=== PATIENT | female | born 1980 | race Caucasian/White ===

== ENCOUNTER 2016-11-28 14:23 | Emergency (ER) | payer SELFPAY ==
[~2016-11-28] VITALS: Ht 157.5 cm; Wt 50.0 kg
[2016-11-28 14:25] VITALS: BP 149/87; PULSE 104; RESP 14; TEMP 98.2; O2SAT 97
== END 2016-11-28 16:59 | disposition left against medical advice (07) ==
LOC: NED 14:23
DX: R68.89 Other general symptoms and signs (principal)
CPT/HCPCS: 99281

== ENCOUNTER 2016-12-11 20:19 | Inpatient (IN) | payer SELFPAY ==
[~2016-12-11] VITALS: Ht 157.5 cm; Wt 57.9 kg
[2016-12-11 20:21] VITALS: BP 130/81; PULSE 97; RESP 18; TEMP 98.1; O2SAT 100
[2016-12-11] MEDS ORDERED: SODIUM CHLORIDE 0.9% FLUSH 5 ML FLUSH IVF PRN (23:30)
[2016-12-11 23:45] LABS: AUTOMATED NEUTROPHIL # 10.7 TH/MM3 (1.8-7.7); BASOPHIL # 0.1 TH/MM3 (0-0.2); BASOPHIL % 0.7 % (0.0-2.0); EOSINOPHIL # 0.1 TH/MM3 (0-0.4); EOSINOPHIL % 0.5 % (0.0-4.0); HEMATOCRIT 34.4 % (35.0-46.0); LYMPH % 13.3 % (9.0-44.0); LYMPHOCYTE # 1.8 TH/MM3 (1.0-4.8); MEAN CELL VOLUME 73.9 FL (80.0-100.0); MEAN CORPUSCULAR HEMOGLOBIN 24.3 PG (27.0-34.0); MEAN CORPUSCULAR HGB CONC 32.9 % (32.0-36.0); NEUT % 77.5 % (16.0-70.0); PLATELET COUNT 296 TH/MM3 (150-450); RED BLOOD COUNT 4.66 MIL/MM3 (4.00-5.30); RED CELL DISTRIBUTION WIDTH 20.2 % (11.6-17.2); WHITE BLOOD COUNT 13.8 TH/MM3 (4.0-11.0)
--- NOTE | 2016-12-11 23:45 | RADRPT ---
EXAM DATE/TIME: 12/11/2016 23:29 [facility] COMPARISON: CHEST SINGLE AP, September 26, 2015, 21:58. INDICATIONS : Chest pain. MEDICAL HISTORY : Chronic obstructive pulmonary disease. Ovarian cancer, Cirrhosis, Asthma SURGICAL HISTORY : None. ENCOUNTER: Initial ACUITY: 2 days PAIN SCORE: 8/10 LOCATION: Bilateral chest FINDINGS: There is an area of increased density in the right upper lobe measuring just under 3 cm in diameter. Further evaluation with chest CT with contrast recommended. Left lung is clear. Heart size normal. No effusion. CONCLUSION: 1. Focal area of consolidation or mass in the right upper lobe. Further evaluation with chest CT desire mmended. Jai Jones MD on December 11, 2016 at 23:42 Board Certified Radiologist. This report was verified electronically.
[2016-12-11 23:49] LABS: HEMO FLAGS AUTO DIFF
[2016-12-11 23:57] LABS: APTT (PATIENT) 29.9 SEC (24.3-30.1); PROTHROMBIN TIME - PATIENT 10.7 SEC (9.8-11.6)
--- NOTE | 2016-12-11 23:58 | PD ---
HPI Chief Complaint: Respiratory Symptoms Time Seen by Provider: 23:13 Travel History International Travel<30 days: No Contact w/Intl Traveler<30days: No Traveled to known affect area: No History of Present Illness HPI The patient is a 36 year old female who presents to the [facility] emergency department with a history of right-sided sharp back pain that she reports began yesterday. She reports the pain is constant and worse with taking a deep breath or exhaling. She reports that it has now also begun to involve her right anterior chest, right neck and her head. The patient reports having nausea but no vomiting. She reports that she's had diarrhea 2-3 times today. She reports that she's had a diminished appetite. She denies ever having a pain similar to this previously. She does have a history of IV drug use of methamphetamine and Dilaudid. She reports that she last used 3 days ago. She denies any prior history of heart infections. She is unsure whether she's had fevers. She reports that she has had chills. She reports that she's had a cough as been nonproductive. The patient reports that the pain in her chest and back makes her feel short of breath. She reports that the only thing that seems to help is lying still and taking shallow breaths. She denies having any lower extremity edema, calf pain, or erythema. The patient denies any abdominal pain, vomiting, urinary symptoms, or neurologic symptoms. LMP: 3 weeks ago [facility] Past Medical History Narrative Medical The patient's past medical history is significant for anxiety, depression, history of an autoimmune disorder, history of cirrhosis, COPD, history of hepatitis C, history of necrotizing fasciitis involving the right flank status post surgery and skin graft placement, history of ovarian cysts, history of polysubstance abuse, history of IV drug use. Asthma: Yes Autoimmune Disease: Yes (rheumatoid arthritis) Anxiety: Yes Depression: Yes Cancer: Yes (HX ovarian) Cardiovascular Problems: No Chemotherapy: Yes Cirrhosis: Yes COPD: Yes Cerebrovascular Accident: No Diabetes: No Diminished Hearing: No Endocrine: No Gastrointestinal Disorders: Yes (pain and diarrhea for two years) Genitourinary: Yes (uti) Headaches: Yes Hepatitis: Yes (HEP C) Immune Disorder: No Musculoskeletal: Yes Neurologic: Yes Psychiatric: Yes Reproductive: No Respiratory: No Immunizations Current: Yes Myocardial Infarction: No Radiation Therapy: No Renal Failure: Yes Seizures: Yes Tetanus Vaccination: < 5 Years Influenza Vaccination: No ?: Not LMP: TUBAL LIGATION : 3 Para: 3 Ovarian Cysts: Yes Tubal Ligation: Yes Past Surgical History Narrative Surgical The patient's past surgical history is significant for expiratory abdominal surgery 3, history of a , history of ovarian surgery, history of skin grafting due to necrotizing fasciitis involving the left side of her posterior thorax. Abdominal Surgery: Yes (exploratory surgery X3) Cardiac Surgery: No Section: Yes (X1) Endocrine Surgery: Yes (adnoids and polyps at age 9) Genitourinary Surgery: No Gynecologic Surgery: Yes (OVARY REMOVAL) Thoracic Surgery: No Other Surgery: Yes Social History Alcohol Use: No Tobacco Use: Yes (10/15-12/15 PPD) Substance Use: Yes (methamphetamine, dilaudid) Allergies-Medications (Allergen,Severity, Reaction): Coded Allergies: Codeine (Verified Allergy, Intermediate, Hives, 12/11/16) Reported Meds & Prescriptions Reported Meds & Active Scripts Active No Active Prescriptions or Reported Medications Review of Systems Except as stated in HPI: all other systems reviewed are Neg General / Constitutional: Positive: Fever, Chills Eyes: No: Visual changes HENT: No: Headaches Cardiovascular: Positive: Chest Pain or Discomfort, Dyspnea on exertion Respiratory: Positive: Cough, Shortness of Breath Gastrointestinal: Positive: Nausea, Diarrhea, Changes in Bowel Habits, Loss of Appetite, No: Vomiting, Abdominal Pain, Indigestion Genitourinary: No: Urgency, Frequency, Dysuria, Flank Pain Musculoskeletal: No: Pain Skin: No Rash Neurologic: No: Weakness, Focal Abnormalities, Change in Mentation, Slurred Speech, Sensory Disturbance Psychiatric: No: Depression Endocrine: No: Polydipsia Hematologic/Lymphatic: No: Easy Bruising Physical Exam Narrative General: The patient is a well-developed well-nourished female who is uncomfortable appearing on my arrival to the room, splinting her breathing. Head and Neck exam: Head is normocephalic atraumatic. Eyes: EOMI, pupils are equal round and reactive to light. Nose: Midline septum with pink mucous membranes Mouth: Dentition unremarkable. Moist mucus membranes. Posterior oropharynx is not erythematous. No tonsillar hypertrophy. Uvula midline. Airway patent. Neck: No palpable lymphadenopathy. No nuchal rigidity. No thyromegaly. Cardiovascular: Sinus tachycardia in the low 100s without murmurs, gallops, or rubs. No pulse deficit to the extremities and simultaneous auscultation and palpation of the radial artery. Lungs: Clear to auscultation bilaterally. No wheezes, rhonchi, or rales. Abdomen: Soft, without tenderness to palpation in all 4 quadrants of the abdomen. No guarding, rebound, or rigidity. Normal bowel sounds are audible. Extremities: No clubbing, cyanosis, or edema. 2+ pulses in all 4 extremities. No calf tenderness on palpation. Negative Homans sign. No palpable cords. Back: No spinous process tenderness to palpation. No costovertebral angle tenderness to palpation. Neurologic Exam: Grossly nonfocal. Skin Exam: Intact skin that is warm and dry. On examination of her skin she has spider angioma on a consistent with her history of cirrhosis. Data Data Last Documented VS Vital Signs Date Time Temp Pulse Resp B/P Pulse Ox O2 Delivery O2 Flow Rate FiO2 12/11/16 20:49 16 Room Air 12/11/16 20:21 98.1 97 130/81 100 Orders Electrocardiogram (12/11/16 23:18) B-Type Natriuretic Peptide (12/11/16 23:18) Ckmb (Isoenzyme) Profile (12/11/16 23:18) Complete Blood Count With Diff (12/11/16 23:18) Comprehensive Metabolic Panel (12/11/16 23:18) Magnesium (Mg) (12/11/16 23:18) Troponin I (12/11/16 23:18) Lipase (12/11/16 23:18) Chest, Single Ap (12/11/16 23:18) Ecg Monitoring (12/11/16 23:18) Iv Access Insert/Monitor (12/11/16 23:18) Oximetry (12/11/16 23:18) Oxygen Administration (12/11/16 23:18) Sodium Chloride 0.9% Flush (Ns Flush) (12/11/16 23:30) Prothrombin Time / Inr (Pt) (12/11/16 23:18) Act Partial Throm Time (Ptt) (12/11/16 23:18) Westergren Sedimentation Rate (12/11/16 23:18) D-Dimer (12/11/16 23:18) Urinalysis - C+S If Indicated (12/11/16 23:18) Drug Screen, Random Urine (12/11/16 23:18) Alcohol (Ethanol) (12/11/16 23:18) Ed Urine Pregnancytest Poc (12/11/16 23:22) Lactic Acid Sepsis Protocol (12/11/16 23:38) Blood Culture (12/11/16 23:38) Sodium Chlor 0.9% 1000 Ml Inj (Ns 1000 M (12/12/16 00:00) Ondansetron Inj (Zofran Inj) (12/12/16 00:00) Ketorolac Inj (Toradol Inj) (12/12/16 00:00) Ct Pulmonary Angiogram (12/12/16 03:35) Vancomycin Inj (Vancomycin Inj) (12/12/16 03:45) Piperacil-Tazo 3.375 Gm Premix (Zosyn 3. (12/12/16 03:45) Admit Order (Ed Use Only) (12/12/16 03:36) Labs Laboratory Tests Test 12/11/16 12/12/16 12/12/16 23:33 00:05 01:40 Prothrombin Time 10.7 SEC Prothromb Time International 1.0 RATIO Ratio Activated Partial 29.9 SEC Thromboplast Time D-Dimer Quantitative (PE/DVT) 0.65 MG/L FEU White Blood Count 13.8 TH/MM3 Red Blood Count 4.66 MIL/MM3 Hemoglobin 11.3 GM/DL Hematocrit 34.4 % Mean Corpuscular Volume 73.9 FL Mean Corpuscular Hemoglobin 24.3 PG Mean Corpuscular Hemoglobin 32.9 % Concent Red Cell Distribution Width 20.2 % Platelet Count 296 TH/MM3 Mean Platelet Volume 7.9 FL Neutrophils (%) (Auto) 77.5 % Lymphocytes (%) (Auto) 13.3 % Monocytes (%) (Auto) 8.0 % Eosinophils (%) (Auto) 0.5 % Basophils (%) (Auto) 0.7 % Neutrophils # (Auto) 10.7 TH/MM3 Lymphocytes # (Auto) 1.8 TH/MM3 Monocytes # (Auto) 1.1 TH/MM3 Eosinophils # (Auto) 0.1 TH/MM3 Basophils # (Auto) 0.1 TH/MM3 CBC Comment AUTO DIFF Differential Comment AUTO DIFF CONFIRMED Erythrocyte Sedimentation Rate 29 mm/hr Sodium Level 134 MEQ/L Potassium Level 3.4 MEQ/L Chloride Level 100 MEQ/L Carbon Dioxide Level 24.8 MEQ/L Anion Gap 9 MEQ/L Blood Urea Nitrogen 4 MG/DL Creatinine 0.56 MG/DL Estimat Glomerular Filtration 122 ML/MIN Rate Random Glucose 87 MG/DL Calcium Level 8.9 MG/DL Magnesium Level 1.9 MG/DL Total Bilirubin 0.4 MG/DL Aspartate Amino Transf 19 U/L (AST/SGOT) Alanine Aminotransferase 12 U/L (ALT/SGPT) Alkaline Phosphatase 75 U/L Total Creatine Kinase 44 U/L Troponin I LESS THAN 0.02 NG/ML B-Type Natriuretic Peptide 61 PG/ML Total Protein 7.3 GM/DL Albumin 2.9 GM/DL Lipase 68 U/L Ethyl Alcohol Level LESS THAN 3 MG/DL Lactic Acid Level 0.9 mmol/L Urine Color LIGHT-YELLOW Urine Turbidity HAZY Urine pH 7.0 Urine Specific [place] 1.005 Urine Protein NEG mg/dL Urine Glucose (UA) NEG mg/dL Urine Ketones 10 mg/dL Urine Occult Blood NEG Urine Nitrite NEG Urine Bilirubin NEG Urine Urobilinogen LESS THAN 2.0 MG/DL Urine Leukocyte Esterase SMALL Urine RBC 1 /hpf Urine WBC 2 /hpf Urine Squamous Epithelial 6 /hpf Cells Urine Renal Epithelial Cells <1 /hpf Urine Bacteria RARE /hpf Microscopic Urinalysis Comment CULT NOT INDICATED Urine Opiates Screen NEG Urine Barbiturates Screen NEG Urine Amphetamines Screen POS Urine Benzodiazepines Screen NEG Urine Cocaine Screen POS Urine Cannabinoids Screen NEG MDM Medical Decision Making Medical Screen Exam Complete: Yes Emergency Medical Condition: Yes Medical Record Reviewed: Yes Interpretation(s) Laboratory Tests Test 12/11/16 12/12/16 12/12/16 23:33 00:05 01:40 Prothrombin Time 10.7 SEC Prothromb Time International 1.0 RATIO Ratio Activated Partial 29.9 SEC Thromboplast Time D-Dimer Quantitative (PE/DVT) 0.65 MG/L FEU White Blood Count 13.8 TH/MM3 Red Blood Count 4.66 MIL/MM3 Hemoglobin 11.3 GM/DL Hematocrit 34.4 % Mean Corpuscular Volume 73.9 FL Mean Corpuscular Hemoglobin 24.3 PG Mean Corpuscular Hemoglobin 32.9 % Concent Red Cell Distribution Width 20.2 % Platelet Count 296 TH/MM3 Mean Platelet Volume 7.9 FL Neutrophils (%) (Auto) 77.5 % Lymphocytes (%) (Auto) 13.3 % Monocytes (%) (Auto) 8.0 % Eosinophils (%) (Auto) 0.5 % Basophils (%) (Auto) 0.7 % Neutrophils # (Auto) 10.7 TH/MM3 Lymphocytes # (Auto) 1.8 TH/MM3 Monocytes # (Auto) 1.1 TH/MM3 Eosinophils # (Auto) 0.1 TH/MM3 Basophils # (Auto) 0.1 TH/MM3 CBC Comment AUTO DIFF Differential Comment AUTO DIFF CONFIRMED Erythrocyte Sedimentation Rate 29 mm/hr Sodium Level 134 MEQ/L Potassium Level 3.4 MEQ/L Chloride Level 100 MEQ/L Carbon Dioxide Level 24.8 MEQ/L Anion Gap 9 MEQ/L Blood Urea Nitrogen 4 MG/DL Creatinine 0.56 MG/DL Estimat Glomerular Filtration 122 ML/MIN Rate Random Glucose 87 MG/DL Calcium Level 8.9 MG/DL Magnesium Level 1.9 MG/DL Total Bilirubin 0.4 MG/DL Aspartate Amino Transf 19 U/L (AST/SGOT) Alanine Aminotransferase 12 U/L (ALT/SGPT) Alkaline Phosphatase 75 U/L Total Creatine Kinase 44 U/L Troponin I LESS THAN 0.02 NG/ML B-Type Natriuretic Peptide 61 PG/ML Total Protein 7.3 GM/DL Albumin 2.9 GM/DL Lipase 68 U/L Ethyl Alcohol Level LESS THAN 3 MG/DL Lactic Acid Level 0.9 mmol/L Urine Color LIGHT-YELLOW Urine Turbidity HAZY Urine pH 7.0 Urine Specific [place] 1.005 Urine Protein NEG mg/dL Urine Glucose (UA) NEG mg/dL Urine Ketones 10 mg/dL Urine Occult Blood NEG Urine Nitrite NEG Urine Bilirubin NEG Urine Urobilinogen LESS THAN 2.0 MG/DL Urine Leukocyte Esterase SMALL Urine RBC 1 /hpf Urine WBC 2 /hpf Urine Squamous Epithelial 6 /hpf Cells Urine Renal Epithelial Cells <1 /hpf Urine Bacteria RARE /hpf Microscopic Urinalysis Comment CULT NOT INDICATED Urine Opiates Screen NEG Urine Barbiturates Screen NEG Urine Amphetamines Screen POS Urine Benzodiazepines Screen NEG Urine Cocaine Screen POS Urine Cannabinoids Screen NEG Last Impressions CT Angiography 12/12/16 [id number] Signed Impressions: Service Date/Time: Monday, December 12, 2016 04:18 - CONCLUSION: 1. Negative for pulmonary embolus. 2. 4 cm dense consolidation posterior segment right upper lobe most characteristic of pneumonia with small parapneumonic right pleural effusion. Jai Jones MD Chest X-Ray 12/11/16 [id number] Signed Impressions: Service Date/Time: Sunday, December 11, 2016 23:29 - CONCLUSION: 1. Focal area of consolidation or mass in the right upper lobe. Further evaluation with chest CT recommended. Jai Jones MD Differential Diagnosis Pleurisy, versus pulmonary embolism, versus pneumothorax, versus endocarditis, versus pulmonary infarct, versus septic pulmonary emboli, versus pneumonia Narrative Course During the course of the patients emergency department visit, the patients history, examination, and differential diagnosis were reviewed with the patient. The patient had IV access obtained and blood work sent for analysis. The patient was placed on a classroom monitor with oximetry and blood pressure monitoring. The patient had an EKG done on arrival. The patient's EKG shows a sinus rhythm heart rate of 91, no acute ST segment elevation, T waves are inverted in V1. The patient was provided Toradol for pain, normal saline IV fluids 1 L IV fluid bolus, Zosyn 3.37 g IV, vancomycin 1 g IV. The patients laboratory studies were reviewed and remarkable for a white count of 13.8, hemoglobin 11.3, platelets 296, neutrophil 77.5, sed rate 29, PT PTT within normal limits. D-dimer 0.65, urinalysis shows 10 ketones, small leukocyte esterase Radiology studies were reviewed and remarkable for a chest x-ray that shows a focal area of consolidation or mass in the right upper lobe. CTA to rule out PE was ordered. CTA to rule out PE shows no evidence of PE, 4 cm dense consolidation posterior segment right upper lobe most characteristic pneumonia with small parapneumonic right pleural effusion. The patients results were discussed with the patient, including the plan of care. I explained that further testing and/ or monitoring is indicated based on the patients history, examination, and/ or laboratory findings. Therefore, I recommended admission for additional evaluation. The patient expressed understanding and was agreeable with this plan. The patient was admitted to the hospital in stable condition and [facility] Sepsis Criteria SIRS Criteria (2 or more): Heart rate over 90, WBC > 08014, < 4000 or > 10% bands Sepsis Criteria (SIRS+source): Infect source susp/known Criteria Outcome: Meets SIRS criteria, Meets sepsis criteria Physician Communication Physician Communication The patient's case was discussed with Dr. Vasquez who did agree to admit the patient for further evaluation and treatment at this time. Diagnosis Primary Impression: Pneumonia Qualified Code: J18.1 - Pneumonia of right upper lobe due to infectious organism Additional Impressions: Polysubstance abuse IV drug user Sepsis Qualified Code: A41.9 - Sepsis, due to unspecified organism Admitting Information Admitting Physician Requests: Admit Scripts No Active Prescriptions or Reported Meds Nataly Miller MD Dec 11, 2016 23:58
[2016-12-12] VITALS (8 sets, daily range): BP systolic 111–137; BP diastolic 68–90; PULSE 70–102; RESP 18–20; TEMP 97.4–98.3; O2SAT 99–100
[2016-12-12] MEDS ORDERED: KETOROLAC TROMETHAMINE 30 MG/ML (IVP) VIAL IV PUSH ONE
[2016-12-12] MEDS ORDERED: ONDANSETRON HCL 4 MG/2 ML VIAL IV ONE
[2016-12-12] MEDS ORDERED: SODIUM CHLOR 0.9% 1000 ML INJ 1,000 ML IV ONE
[2016-12-12 00:08] LABS: ALKALINE PHOSPHATASE 75 U/L (45-117); ALT (GPT) 12 U/L (10-53); ANION GAP 9 MEQ/L (5-15); AST (GOT) 19 U/L (15-37); BICARBONATE 24.8 MEQ/L (21.0-32.0); BLOOD UREA NITROGEN 4 MG/DL (7-18); CHLORIDE 100 MEQ/L (98-107); GLOMERULAR FILTRATION RATE 122 ML/MIN (>89); MAGNESIUM 1.9 MG/DL (1.5-2.5); SODIUM (NA) 134 MEQ/L (136-145); TOTAL BILIRUBIN ADULT 0.4 MG/DL (0.2-1.0)
[2016-12-12 00:09] LABS: CREATINE KINASE 44 U/L (26-192); POTASSIUM 3.4 MEQ/L (3.5-5.1)
[2016-12-12 02:05] LABS: SCAN/DIFF AUTO DIFF CONFIRMED
[2016-12-12 02:06] LABS: BACTERIA, URINE RARE /hpf; BLOOD, URINE NEG (NEG); GLUCOSE,URINE NEG (NEG); KETONE, URINE 10 mg/dL (NEG); NITRITE,URINE NEG (NEG); RENAL EPITHELIAL CELLS <1 /hpf; SQUAMOUS EPITHELIAL CELL URINE 6 /hpf (0-5); URINE COLOR LIGHT-YELLOW (YELLW/STRAW)
[2016-12-12 02:07] LABS: COMMENT (UR) CULT NOT INDICATED; CULTURE IF INDICATED CULT NOT INDICATED
[2016-12-12 02:08] LABS: AMPHETAMINE, URINE POS (NEG); BARBITURATES, URINE NEG (NEG); COCAINE, URINE POS (NEG)
[2016-12-12] MEDS ORDERED: PIPERACIL-TAZO 3.375 GM PREMIX 50 ML IV ONE (03:45)
[2016-12-12] MEDS ORDERED: VANCOMYCIN INJ 1,000 MG in SODIUM CHLOR 0.9% 250 ML INJ 250 ML IV ONE (03:45)
[2016-12-12] MEDS ORDERED: SODIUM CHLORIDE 0.9% FLUSH 5 ML FLUSH FLUSH PRN (04:30)
[2016-12-12] MEDS ORDERED: NALOXONE HCL 0.4 MG/ML AMP IV PRN (04:30)
[2016-12-12] MEDS ORDERED: Vancomycin Consult Pharmacy 1 EA OTHER SCH (04:30)
--- NOTE | 2016-12-12 04:54 | RADRPT ---
EXAM DATE/TIME: 12/12/2016 04:18 [facility] COMPARISON: No previous studies available for comparison. INDICATIONS : Right sided chest pain. Elevated D-Dimer. IV CONTRAST: 70 cc Omnipaque 350 (iohexol) IV RADIATION DOSE: 23.38 CTDIvol (mGy) MEDICAL HISTORY : Chronic obstructive pulmonary disease. Hepatitis C. Asthma SURGICAL HISTORY : Tubal ligation. section. ENCOUNTER: Initial ACUITY: 1 day PAIN SCALE: 9/10 LOCATION: Right chest TECHNIQUE: Volumetric scanning of the chest was performed using a pulmonary embolism protocol MIP images were re constructed. Using automated exposure control and adjustment of the mA and/or kV according to patien t size, radiation dose was kept as low as reasonably achievable to obtain optimal diagnostic quality images. FINDINGS: There is a false M. area of consolidation in the posterior segment right upper lobe most characterist ic of a right upper lobe pneumonia. Borderline enlarged right hilar lymph node. Small right-sided ple ural effusion. Left lung is clear except for minimal dependent atelectasis. No filling defects in the pulmonary arteries to suggest pulmonary embolic disease. No acute findings in the upper abdomen. CONCLUSION: 1. Negative for pulmonary embolus. 2. 4 cm dense consolidation posterior segment right upper lobe most characteristic of pneumonia with small parapneumonic right pleural effusion. Jai Jones MD on December 12, 2016 at 4:48 Board Certified Radiologist. This report was verified electronically.
[2016-12-12] MEDS ORDERED: IOHEXOL 350 MG/ML 10 ML VIAL (for RAD DIAG) IV ONE (04:57)
[2016-12-12] MEDS: ENOXAPARIN SODIUM 40 MG/0.4 ML SYRINGE SQ SCH (08:36)
[2016-12-12] MEDS: SODIUM CHLORIDE 0.9% FLUSH 5 ML FLUSH FLUSH SCH ×2 (08:36→20:55)
[2016-12-12] MEDS ORDERED: AMPICILLIN-SULBACTAM INJ 3 GM VIAL IM SCH (09:00)
[2016-12-12] MEDS ORDERED: PIPERACIL-TAZO 4.5 GM PREMIX 100 ML IV SCH (09:00)
[2016-12-12] MEDS ORDERED: AMPICILLIN/SULBAC 3 GM/NS 100 ML IV SCH ×2 (09:00)
--- NOTE | 2016-12-12 09:11 | HHI.HP ---
HPI Service [facility] Primary Care Physician No Primary Care Physician Admission Diagnosis Pneumonia, R/O lung mass, Chest pain Diagnoses: Chief Complaint: Chest pain. Travel History International Travel<30 Days: No Contact w/Intl Traveler <30 Da: No Traveled to Known Affected Are: No Sepsis Criteria SIRS Criteria (2 or more): Heart rate over 90, WBC > 33695, < 4000 or > 10% bands Sepsis Criteria (SIRS+source): Infect source susp/known History of Present Illness Ms. Watson is a 36 year old female with a long history of IVDU, Hep C who presented to the ED on 12/11/2016 due to sharp upper right chest wall pain, right upper back pain that started day prior to this hospitalization. Her pain is worse with a deep breath. She reports radiation of her pain to her right neck and head as well. She had some nausea but no vomiting. Had night sweats but no fever. She uses mainly IV methamphetamine and her last use was 3 days prior to this hospitalization. Denies any cough. No changes in bowel or bladder habits. On Arrival, BP 130/81, P 97, R 18, 98.1, 100% on room air. WBC 13.8, Lactic acid 0.9. UDS positive for cocaine and amphetamines. CXR indicated a right lung mass and CT PE shows 4 cm dense consolidation posterior segment right upper lobe. Review of Systems ROS Limitations: Other (Negative except as noted in the HPI. ) Past Family Social History Past Medical History Hep C Necrotizing Fasciitis. Past Surgical History Necrotizing fasciitis surgery Foot surgery Right ovarian cyst removal, ex lap. Reported Medications No active meds. Allergies: Coded Allergies: Codeine (Verified Allergy, Intermediate, Hives, 12/11/16) Family History Mother - colorectal cancer. Social History < 1ppd smoking. IVDU. Physical Exam Vital Signs Vital Signs Date Time Temp Pulse Resp B/P Pulse Ox O2 Delivery O2 Flow Rate FiO2 12/12/16 08:00 97.6 93 20 136/90 100 12/12/16 06:21 70 12/12/16 05:50 98.2 102 18 118/77 100 12/12/16 04:05 85 18 111/68 99 Room Air 12/11/16 20:49 16 Room Air 12/11/16 20:21 98.1 97 18 130/81 100 Physical Exam GENERAL: This is a well-nourished, well-developed patient, in no apparent distress. SKIN: No rashes, ecchymoses or lesions. Warm and dry. HEAD: Atraumatic. Normocephalic. No temporal or scalp tenderness. EYES: Pupils equal round and reactive. No injection or drainage. ENT: Nose without bleeding, purulent drainage or septal hematoma. Airway patent. NECK: Trachea midline. No lymphadenopathy. Supple, nontender, no meningeal signs. CARDIOVASCULAR: Regular rate and rhythm without murmurs, gallops, or rubs. No JVD. RESPIRATORY: Clear to auscultation. Breath sounds equal bilaterally. No wheezes , rales, or rhonchi. GASTROINTESTINAL: Abdomen soft, non-tender, nondistended. No guarding. MUSCULOSKELETAL: Extremities without clubbing, cyanosis, or edema. NEUROLOGICAL: Awake and alert. Cranial nerves II through XII intact. No focal neurological deficits. Normal speech. Laboratory Laboratory Tests Test 12/11/16 12/12/16 12/12/16 23:33 00:05 01:40 Prothrombin Time 10.7 Prothromb Time International 1.0 Ratio Activated Partial 29.9 Thromboplast Time D-Dimer Quantitative (PE/DVT) 0.65 White Blood Count 13.8 Red Blood Count 4.66 Hemoglobin 11.3 Hematocrit 34.4 Mean Corpuscular Volume 73.9 Mean Corpuscular Hemoglobin 24.3 Mean Corpuscular Hemoglobin 32.9 Concent Red Cell Distribution Width 20.2 Platelet Count 296 Mean Platelet Volume 7.9 Neutrophils (%) (Auto) 77.5 Lymphocytes (%) (Auto) 13.3 Monocytes (%) (Auto) 8.0 Eosinophils (%) (Auto) 0.5 Basophils (%) (Auto) 0.7 Neutrophils # (Auto) 10.7 Lymphocytes # (Auto) 1.8 Monocytes # (Auto) 1.1 Eosinophils # (Auto) 0.1 Basophils # (Auto) 0.1 CBC Comment AUTO DIFF Differential Comment AUTO DIFF CONFIRMED Erythrocyte Sedimentation Rate 29 Sodium Level 134 Potassium Level 3.4 Chloride Level 100 Carbon Dioxide Level 24.8 Anion Gap 9 Blood Urea Nitrogen 4 Creatinine 0.56 Estimat Glomerular Filtration 122 Rate Random Glucose 87 Calcium Level 8.9 Magnesium Level 1.9 Total Bilirubin 0.4 Aspartate Amino Transf 19 (AST/SGOT) Alanine Aminotransferase 12 (ALT/SGPT) Alkaline Phosphatase 75 Total Creatine Kinase 44 Troponin I LESS THAN 0.02 B-Type Natriuretic Peptide 61 Total Protein 7.3 Albumin 2.9 Lipase 68 Ethyl Alcohol Level LESS THAN 3 Lactic Acid Level 0.9 Urine Color LIGHT-YELLOW Urine Turbidity HAZY Urine pH 7.0 Urine Specific [place] 1.005 Urine Protein NEG Urine Glucose (UA) NEG Urine Ketones 10 Urine Occult Blood NEG Urine Nitrite NEG Urine Bilirubin NEG Urine Urobilinogen LESS THAN 2.0 Urine Leukocyte Esterase SMALL Urine RBC 1 Urine WBC 2 Urine Squamous Epithelial 6 Cells Urine Renal Epithelial Cells <1 Urine Bacteria RARE Microscopic Urinalysis Comment CULT NOT INDICATED Urine Opiates Screen NEG Urine Barbiturates Screen NEG Urine Amphetamines Screen POS Urine Benzodiazepines Screen NEG Urine Cocaine Screen POS Urine Cannabinoids Screen NEG Date/Time Procedure Status Source Growth 12/11/16 23:50 Aerobic Blood Culture Received Blood Peripheral Pending 12/11/16 23:50 Anaerobic Blood Culture Received Blood Peripheral Pending Result Diagram: 12/11/16 2333 12/11/16 [address] Angiography 12/12/16 0335 Signed Impressions: Service Date/Time: Monday, December 12, 2016 04:18 - CONCLUSION: 1. Negative for pulmonary embolus. 2. 4 cm dense consolidation posterior segment right upper lobe most characteristic of pneumonia with small parapneumonic right pleural effusion. Jai Jones MD Chest X-Ray 12/11/16 2449 Signed Impressions: Service Date/Time: Sunday, December 11, 2016 23:29 - CONCLUSION: 1. Focal area of consolidation or mass in the right upper lobe. Further evaluation with chest CT recommended. Jai Jones MD Assessment and Plan Problem List: (1) Sepsis ICD Code: A41.9 Status: Resolved (2) Pneumonia ICD Code: J18.9 Status: Acute (3) Pleuritic chest pain ICD Code: R07.81 Status: Acute (4) IVDU (intravenous drug user) ICD Code: F19.90 Status: Chronic Assessment and Plan Ms. Watson is a 36 year old female with a history of Hep C, IVDU who presented to the ED with pleuritic chest pain. CT PE study shows 4 cm dense consolidation. - Sepsis - on admission WBC > 12, Resp rate > 20, Pneumonia - Right sided pneumonia - possibly abscess. - Pleuritic chest pain - On Unasyn and Vancomycin. ID changed Unasyn to Zosyn. - ID consulted for further recommendations. - IV Dilaudid 1mg Q4hrs PRN for one day. Tramadol PO PRN. - Blood cultures pending. - IVDU - Hep C - Counselled patient. - Possible referral to [facility] after discharge Full code. Ladi. Physician Certification 2 Midnight Certification Type: Admission for Inpatient Services Order for Inpatient Services The services are ordered in accordance with Medicare regulations or non- Medicare payer requirements, as applicable. In the case of services not specified as inpatient-only, they are appropriately provided as inpatient services in accordance with the 2-midnight benchmark. Estimated LOS (days): 2 days is the estimated time the patient will need to remain in the hospital, assuming treatment plan goals are met and no additional complications. Post-Hospital Plan: Home Problem Qualifiers (1) Sepsis: Qualified Code: A41.9 - Sepsis, due to unspecified organism (2) Pneumonia: Qualified Code: J18.1 - Pneumonia of right upper lobe due to infectious organism Ernesto Krueger DO Dec 12, 2016 9:11 am
[2016-12-12] MEDS ORDERED: traMADol HCL 50 MG TAB PO PRN (09:15)
[2016-12-12] MEDS ORDERED: ACETAMINOPHEN 500 MG CPLT PO PRN (09:15)
--- NOTE | 2016-12-12 10:09 | EKG ---
Date Performed: 12/11/2016 Time Performed: 23:44:00 PTAGE: 36 years EKG: Sinus rhythm NORMAL ECG PREVIOUS TRACING : 05/06/2016 12.38 DOCTOR: Jaron Mart Interpretating Date/Time 12/12/2016 10:09:39
[2016-12-12] MEDS: HYDROmorphone HCL PF 1 MG/ML VIAL IV PUSH PRN ×4 (10:42→23:13)
--- NOTE | 2016-12-12 11:59 | PD.CONS ---
History of Present Illness Service Infectious disease Consult Requested By Dr Robert Krueger Reason for Consult Evaluate patient with IV drug use, has right lung brown consolidation, possible lung abscess Primary Care Physician No Primary Care Physician Diagnoses: History of Present Illness Patient seen and examined. Records reviewed. Patient is a 36-year-old female presented to the hospital complaining of chest pain and back pain. She initially started experiencing pain in her right upper chest, especially when she takes a deep breath. It progressively worsened and she started having pain in her right upper back as well as pain going up to her right neck. This all started a couple days prior to admission. She denies any congestion or any significant cough, or sore throat. Denies any nausea or vomiting, admits to some diarrhea. She really did not check her temperature but she's had some chills. She has not been around anyone sick. No exposure to any birds. She denies any syncopal episode. She denies any abdominal pain or any urinary complaints. On presentation, her temperature has been normal. Her WBC is normal. Chest x- ray showing an abnormality in the right upper lobe which looks like a mass, and on CAT scan it showed no pulmonary embolism but there is a 2.5 cm consolidation that looks more compatible with a pneumonia. There is also some effusion seen on the right side. Infectious disease consultation is requested to evaluate the patient. Review of Systems Constitutional: COMPLAINS OF: Chills, DENIES: Fatigue, Change in appetite, Night Sweats Eyes: DENIES: Eye pain Ears, nose, mouth, throat: DENIES: Nasal discharge, Oral lesions, Throat pain, Running Nose, Sinus Pain, Toothache Respiratory: COMPLAINS OF: Shortness of breath, DENIES: Cough, Hemoptysis, Sputum production Cardiovascular: COMPLAINS OF: Chest pain, DENIES: Syncope Gastrointestinal: COMPLAINS OF: Diarrhea, DENIES: Abdominal pain, Nausea, Vomiting, Difficulty Swallowing Genitourinary: DENIES: Urgency, Hematuria, Dysuria Musculoskeletal: COMPLAINS OF: Back pain, Neck pain, DENIES: Joint pain, Joint Swelling Integumentary: DENIES: Rash Immunologic/allergic: DENIES: Urticaria Neurologic: DENIES: Headache, Localized weakness Psychiatric: COMPLAINS OF: Anxiety, DENIES: Hallucinations Past Family Social History Allergies: Coded Allergies: Codeine (Verified Allergy, Intermediate, Hives, 12/11/16) Past Medical History Asthma Anxiety Depression Cervical cancer Cirrhosis PTSD Ovarian cyst Previous hepatitis serology, positive for hepatitis B and hepatitis C Patient states HIV testing in the past negative History of necrotizing fasciitis right trunk Past Surgical History section History of necrotizing fasciitis in her right trunk, had undergone multiple debridement and skin grafting Tubal ligation Fracture of the foot, apparently has screws and plates in place Adenoidectomy Active Ordered Medications Tylenol Unasyn Lovenox Dilaudid Ultram Vancomycin Social History Has a roommate Smokes less than 1 pack per day of cigarettes Denies alcohol abuse Has known IV drug use Physical Exam Vital Signs Vital Signs Date Time Temp Pulse Resp B/P Pulse Ox O2 Delivery O2 Flow Rate FiO2 12/12/16 11:36 97.4 93 20 121/74 100 12/12/16 08:00 97.6 93 20 136/90 100 12/12/16 06:21 70 12/12/16 05:50 98.2 102 18 118/77 100 12/12/16 04:05 85 18 111/68 99 Room Air 12/11/16 20:49 16 Room Air 12/11/16 20:21 98.1 97 18 130/81 100 Physical Exam GENERAL: This is a thin, well-developed female, awake and alert, C/O pain on her R chest, not in respiratory distress, does not look toxic appearing. SKIN: Cool and dry. No generalized rash or ecchymosis. Has tattoos. HEAD: Atraumatic. Normocephalic. No temporal or scalp tenderness. EYES: [place] conjunctiva. Pupils equal round and reactive. Extraocular movement full and intact. No scleral icterus. No injection or drainage. ENT: Nose without bleeding, or purulent drainage. Moist oral mucosa. Throat without erythema, or exudate. Uvula midline. Airway patent. NECK: Trachea midline. No JVD or lymphadenopathy. Supple, nontender, no meningeal signs. CARDIOVASCULAR: Regular rate and rhythm without murmurs, gallops, or rubs. RESPIRATORY: Coarse BS bilaterally. Breath sounds equal bilaterally. No wheezes , rales, or rhonchi. There is a large scar on R lateral trunk from previous grafting GASTROINTESTINAL: Abdomen soft, flat, non-tender, nondistended. Bowel sounds present and normoactive. No hepato-splenomegaly, or palpable masses. No guarding. MUSCULOSKELETAL: Extremities without clubbing, cyanosis, or edema. No joint tenderness, effusion, or edema noted. No calf tenderness. Negative Homans sign bilaterally. NEUROLOGICAL: Awake and alert. Cranial nerves II through XII intact. Motor and sensory grossly within normal limits. Normal speech. PSYCH: Appropriate affect, calm and cooperative LINE: PIV with no evidence of infection Laboratory Laboratory Tests Test 12/11/16 12/12/16 12/12/16 23:33 00:05 01:40 Prothrombin Time 10.7 Prothromb Time International 1.0 Ratio Activated Partial 29.9 Thromboplast Time D-Dimer Quantitative (PE/DVT) 0.65 White Blood Count 13.8 Red Blood Count 4.66 Hemoglobin 11.3 Hematocrit 34.4 Mean Corpuscular Volume 73.9 Mean Corpuscular Hemoglobin 24.3 Mean Corpuscular Hemoglobin 32.9 Concent Red Cell Distribution Width 20.2 Platelet Count 296 Mean Platelet Volume 7.9 Neutrophils (%) (Auto) 77.5 Lymphocytes (%) (Auto) 13.3 Monocytes (%) (Auto) 8.0 Eosinophils (%) (Auto) 0.5 Basophils (%) (Auto) 0.7 Neutrophils # (Auto) 10.7 Lymphocytes # (Auto) 1.8 Monocytes # (Auto) 1.1 Eosinophils # (Auto) 0.1 Basophils # (Auto) 0.1 CBC Comment AUTO DIFF Differential Comment AUTO DIFF CONFIRMED Erythrocyte Sedimentation Rate 29 Sodium Level 134 Potassium Level 3.4 Chloride Level 100 Carbon Dioxide Level 24.8 Anion Gap 9 Blood Urea Nitrogen 4 Creatinine 0.56 Estimat Glomerular Filtration 122 Rate Random Glucose 87 Calcium Level 8.9 Magnesium Level 1.9 Total Bilirubin 0.4 Aspartate Amino Transf 19 (AST/SGOT) Alanine Aminotransferase 12 (ALT/SGPT) Alkaline Phosphatase 75 Total Creatine Kinase 44 Troponin I LESS THAN 0.02 B-Type Natriuretic Peptide 61 Total Protein 7.3 Albumin 2.9 Lipase 68 Ethyl Alcohol Level LESS THAN 3 Lactic Acid Level 0.9 Urine Color LIGHT-YELLOW Urine Turbidity HAZY Urine pH 7.0 Urine Specific [place] 1.005 Urine Protein NEG Urine Glucose (UA) NEG Urine Ketones 10 Urine Occult Blood NEG Urine Nitrite NEG Urine Bilirubin NEG Urine Urobilinogen LESS THAN 2.0 Urine Leukocyte Esterase SMALL Urine RBC 1 Urine WBC 2 Urine Squamous Epithelial 6 Cells Urine Renal Epithelial Cells <1 Urine Bacteria RARE Microscopic Urinalysis Comment CULT NOT INDICATED Urine Opiates Screen NEG Urine Barbiturates Screen NEG Urine Amphetamines Screen POS Urine Benzodiazepines Screen NEG Urine Cocaine Screen POS Urine Cannabinoids Screen NEG Date/Time Procedure Status Source Growth 12/11/16 23:50 Aerobic Blood Culture Received Blood Peripheral Pending 12/11/16 23:50 Anaerobic Blood Culture Received Blood Peripheral Pending Result Diagram: 12/11/16 2333 12/11/16 2333 Imaging RADIOLOGY STUDIES/FILMS REVIEWED CT Angiography 12/12/16 0335 Signed Impressions: Service Date/Time: Monday, December 12, 2016 04:18 - CONCLUSION: 1. Negative for pulmonary embolus. 2. 4 cm dense consolidation posterior segment right upper lobe most characteristic of pneumonia with small parapneumonic right pleural effusion. Jai Jones MD Chest X-Ray 12/11/16 5164 Signed Impressions: Service Date/Time: Sunday, December 11, 2016 23:29 - CONCLUSION: 1. Focal area of consolidation or mass in the right upper lobe. Further evaluation with chest CT recommended. Jai Jones MD Assessment and Plan Assessment and Plan IMPRESSION Pneumonia, RUL Known IVDU Hep B and Hep C RECOMMENDATION Continue IV Vanco Change Unasyn to Zosyn Follow C/S Monitor progress Will determine course of Abx once work-up completed I will follow along with you Thank you for this consultation Radha Chen MD Dec 12, 2016 11:59
[2016-12-12] MEDS: PIPERACIL-TAZO 3.375 GM PREMIX 50 ML IV SCH ×2 (14:11→18:53)
[2016-12-12] MEDS: VANCOMYCIN 1,000 MG/NS 250 ML IV SCH ×2 (17:16)
[2016-12-13] MEDS: PIPERACIL-TAZO 3.375 GM PREMIX 50 ML IV SCH ×4 (00:46→18:55)
[2016-12-13 01:22] VITALS: BP 120/73; PULSE 96; RESP 18; O2SAT 99
[2016-12-13] MEDS: HYDROmorphone HCL PF 1 MG/ML VIAL IV PUSH PRN ×2 (03:05→09:10)
[2016-12-13] MEDS: VANCOMYCIN 1,000 MG/NS 250 ML IV SCH ×6 (03:38→23:56)
[2016-12-13 05:20] LABS: AUTOMATED NEUTROPHIL # 6.9 TH/MM3 (1.8-7.7); BASOPHIL % 0.4 % (0.0-2.0); EOSINOPHIL # 0.2 TH/MM3 (0-0.4); EOSINOPHIL % 1.8 % (0.0-4.0); LYMPH % 15.9 % (9.0-44.0); LYMPHOCYTE # 1.5 TH/MM3 (1.0-4.8); MEAN CELL VOLUME 74.6 FL (80.0-100.0); MEAN CORPUSCULAR HEMOGLOBIN 24.6 PG (27.0-34.0); MONO % 8.7 % (0.0-8.0); NEUT % 73.2 % (16.0-70.0); PLATELET COUNT 290 TH/MM3 (150-450); RED BLOOD COUNT 4.03 MIL/MM3 (4.00-5.30); RED CELL DISTRIBUTION WIDTH 19.5 % (11.6-17.2); WHITE BLOOD COUNT 9.4 TH/MM3 (4.0-11.0)
[2016-12-13 05:31] LABS: HEMO FLAGS AUTO DIFF
[2016-12-13 05:44] LABS: POTASSIUM 3.5 MEQ/L (3.5-5.1)
[2016-12-13 06:10] VITALS: BP 119/76; PULSE 92; RESP 18; TEMP 98.4; O2SAT 98
[2016-12-13 07:53] LABS: SCAN/DIFF AUTO DIFF CONFIRMED
[2016-12-13 08:43] VITALS: BP 126/87; PULSE 92; RESP 17; TEMP 97.7; O2SAT 98
[2016-12-13] MEDS: SODIUM CHLORIDE 0.9% FLUSH 5 ML FLUSH FLUSH SCH ×2 (09:07→19:30)
[2016-12-13] MEDS: ENOXAPARIN SODIUM 40 MG/0.4 ML SYRINGE SQ SCH (09:07)
[2016-12-13] MEDS ORDERED: INFLUENZA VIRUS VACCINE (QUADRIVALENT) 0.5 ML SYR IM ONE (10:00)
[2016-12-13 13:02] VITALS: BP 113/72; PULSE 87; RESP 17; O2SAT 98
[2016-12-13] MEDS ORDERED: PHARMACY ORDERED LAB XX ONE (15:45)
--- NOTE | 2016-12-13 16:17 | HHI.PR ---
Subjective Remarks Follow up for IVDU, right upper lobe dense consolidation. Ms. Watson complains of persistent severe pain on her right upper chest and neck area. She denies any fevers chills. Tolerating diet well. Objective Vitals Vital Signs Date Time Temp Pulse Resp B/P Pulse Ox O2 Delivery O2 Flow Rate FiO2 12/13/16 13:02 87 17 113/72 98 12/13/16 08:43 97.7 92 17 126/87 98 12/13/16 06:10 98.4 92 18 119/76 98 12/13/16 01:22 96 18 120/73 99 12/12/16 20:40 98.3 90 18 118/70 99 12/12/16 20:00 72 I/O 12/12/16 12/12/16 12/12/16 12/13/16 12/13/16 12/13/16 07:00 15:00 23:00 07:00 15:00 23:00 Intake Total 402 ml 174 ml Balance 402 ml 174 ml Intake Oral Supplement 120 ml IV Total 402 ml 54 ml # Voids 5 5 Result Diagram: 12/13/16 0449 12/13/16 [address] Angiography 12/12/16 0335 Signed Impressions: Service Date/Time: Monday, December 12, 2016 04:18 - CONCLUSION: 1. Negative for pulmonary embolus. 2. 4 cm dense consolidation posterior segment right upper lobe most characteristic of pneumonia with small parapneumonic right pleural effusion. Jai Jones MD Chest X-Ray 12/11/16 [id number] Signed Impressions: Service Date/Time: Sunday, December 11, 2016 23:29 - CONCLUSION: 1. Focal area of consolidation or mass in the right upper lobe. Further evaluation with chest CT recommended. Jai Jones MD Objective Remarks GENERAL: Alert, oriented 3, NAD. SKIN: Warm and dry. HEAD: Normocephalic. EYES: No scleral icterus. No injection or drainage. NECK: Supple, trachea midline. No JVD or lymphadenopathy. CARDIOVASCULAR: Regular rate and rhythm without murmurs, gallops, or rubs. Chest wall tenderness on the upper right chest wall on palpation. RESPIRATORY: Breath sounds equal bilaterally. No accessory muscle use. GASTROINTESTINAL: Abdomen soft, non-tender, nondistended. MUSCULOSKELETAL: No cyanosis, or edema. BACK: Nontender without obvious deformity. No CVA tenderness. Procedures None A/P Problem List: (1) Sepsis ICD Code: A41.9 Status: Resolved (2) Pneumonia ICD Code: J18.9 Status: Acute (3) Pleuritic chest pain ICD Code: R07.81 Status: Acute (4) IVDU (intravenous drug user) ICD Code: F19.90 Status: Chronic Assessment and Plan Ms. Watson is a 36 year old female with a history of Hep C, IVDU who presented to the ED with pleuritic chest pain. CT PE study shows 4 cm dense consolidation. - Sepsis - on admission WBC > 12, Resp rate > 20, Pneumonia - Right sided pneumonia - possibly abscess. - Pleuritic chest pain - On Zosyn and Vancomycin. ID is following. - IV Dilaudid 1mg Q4hrs PRN for one day. Discontinue tramadol and start Percocet 7.5/325 every 6 hours when necessary. - Blood cultures negative so far - Consult pulmonary, patient probably needs a bronchoscopy or CT-guided aspiration. Discussed with Dr. Gastelum. - IVDU - Hep C - Counselled patient. - Possible referral to [facility] after discharge Full code. Ladi. Problem Qualifiers (1) Sepsis: Qualified Code: A41.9 - Sepsis, due to unspecified organism (2) Pneumonia: Qualified Code: J18.1 - Pneumonia of right upper lobe due to infectious organism Ernesto Krueger DO Dec 13, 2016 4:17 pm
[2016-12-13 16:20] VITALS: BP 133/89; PULSE 82; RESP 16; TEMP 98.2; O2SAT 97
[2016-12-13] MEDS: oxyCODONE/ACETAMINOPHEN 7.5 MG/325 MG TAB PO PRN ×2 (17:00→23:09)
[2016-12-13 20:00] VITALS: BP 111/70; PULSE 96; RESP 16; TEMP 98.2; O2SAT 99
--- NOTE | 2016-12-13 20:22 | MB ---
cc: ROMA YEUNG,MARLINE Abarca MD DATE OF CONSULTATION: 12/13/[address] Roma Yeung REASON FOR CONSULTATION Evaluation of lung infiltrate and lung mass. HISTORY OF PRESENT ILLNESS Ms. Watson is a 36-year-old female with a history of IV drug abuse, her last use was six days ago. She came to the hospital with chest pain in the right posterior chest worse with deep breathing. She did not have any fever but has some chills, no nausea or vomiting. No cough or sputum production with these symptoms. With these symptoms she came to the hospital. She had a CT scan of the chest done which shows that she has a 4 cm dense consolidation in the posterior segment of the right upper lobe characteristic of pneumonia with small parapneumonic effusion. CBC shows WBC count 9.4, hemoglobin 9.9, hematocrit 30, MCV 74, platelet count 290. Sodium 141, potassium 3.5, chloride 108, CO2 25, BUN 7, creatinine 0.52. INR is 1.0. PAST MEDICAL HISTORY 1. History of IV drug abuse. 2. History of necrotizing fasciitis. 3. She has had 10 different surgeries done. 4. Initially she was at [facility] then transferred to [facility]. 5. History of ovarian cyst surgery. 6. Cirrhosis of the liver and hepatitis C. 7. History of anxiety, depression. 8. History of asthma. MEDICATIONS She is currently taking - 1. Oxycodone for pain. 2. Vancomycin. 3. Zosyn. 4. Lovenox 40 mg a day. ALLERGIES CODEINE. SOCIAL HISTORY She is single, has a 16-year-old girl who lives with the patient's mother. Has a history of smoking half to one pack per day. History of IV drug use. 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 She lives with a family friend. REVIEW OF SYSTEMS She has lost weight, feels weak. No hemoptysis. No DVT or pulmonary embolism. HIV test was negative. PHYSICAL EXAMINATION GENERAL: A thin-built female, mild short of breath, not in acute distress. VITAL SIGNS: Blood pressure 133/89, heart rate 82, respirations 16, temperature 98.2. HEENT: Pupils are equal and reactive. Oral mucosa and nasal mucosa normal. NECK: Supple. JVP not raised. CHEST: Air entry equal bilaterally. She has no rhonchi. CARDIOVASCULAR: S1, S2 normal. ABDOMEN: Benign. EXTREMITIES: No edema. IMPRESSION 1. Right upper lobe posterior segment 4 cm lesion, possible infection, malignancy is not ruled out. 2. IV drug use. 3. History of necrotizing fasciitis. 4. Nicotine use. PLAN I discussed with the patient and discussed the option of treating her with antibiotic and proceed with further treatment with a bronchoscopy. She wants to know more definitely and wants to proceed with bronchoscopy. I explained to her the procedure and the complications including complication of anesthesia, pneumothorax requiring chest tube, bleeding complication, injury to the blood vessels, lungs, nose, arrhythmia, hypoxia and possibly nondiagnostic reports which she understands and wants to proceed. I will schedule her for bronchoscopy tomorrow. Further treatment will depend on the course in the hospital. Than you Dr. Yeung for the consultation. MD BERENICE Nieto/GUY /5:51 PM /7:41 PM
[2016-12-14] VITALS (7 sets, daily range): BP systolic 110–125; BP diastolic 73–82; PULSE 66–97; RESP 16; TEMP 97–98.4; O2SAT 97–100
[2016-12-14] MEDS: PIPERACIL-TAZO 3.375 GM PREMIX 50 ML IV SCH ×4 (01:33→18:00)
[2016-12-14] MEDS: oxyCODONE/ACETAMINOPHEN 7.5 MG/325 MG TAB PO PRN ×5 (05:16→23:37)
[2016-12-14] MEDS: SODIUM CHLORIDE 0.9% FLUSH 5 ML FLUSH FLUSH SCH ×2 (07:43→20:23)
[2016-12-14] MEDS: VANCOMYCIN 1,000 MG/NS 250 ML IV SCH ×6 (07:43→23:38)
--- NOTE | 2016-12-14 10:39 | HHI.IDPN ---
Subjective Subjective Remarks Notes reviewed Temps ok Continues to have pain R chest, back and neck Not coughing Bronch planned for today BC negative ESR 29 Antibiotics Vancomycin Zosyn Lines PIV Past Medical History Asthma Anxiety Depression Cervical cancer Cirrhosis PTSD Ovarian cyst Previous hepatitis serology, positive for hepatitis B and hepatitis C Patient states HIV testing in the past negative History of necrotizing fasciitis right trunk Past Surgical History section History of necrotizing fasciitis in her right trunk, had undergone multiple debridement and skin grafting Tubal ligation Fracture of the foot, apparently has screws and plates in place Adenoidectomy Allergies: Coded Allergies: Codeine (Verified Allergy, Intermediate, Hives, 12/11/16) Objective . Vital Signs Date Time Temp Pulse Resp B/P Pulse Ox O2 Delivery O2 Flow Rate FiO2 12/14/16 08:00 97.1 66 16 114/73 97 12/14/16 04:00 98.0 71 16 118/77 99 12/14/16 00:14 88 12/14/16 00:00 98.4 92 16 111/74 100 12/13/16 20:00 98.2 96 16 111/70 99 12/13/16 16:20 98.2 82 16 133/89 97 12/13/16 13:02 87 17 113/72 98 12/13/16 12/13/16 12/14/16 15:00 23:00 07:00 Intake Total 174 ml 200 ml 360 ml Output Total 300 ml Balance 174 ml -100 ml 360 ml Intake Oral 200 ml 0 ml Oral Supplement 120 ml IV Total 54 ml 360 ml Output Urine Total 300 ml # Voids 5 2 # Bowel Movements 0 0 . Laboratory Tests Test 12/13/16 04:49 White Blood Count 9.4 TH/MM3 Red Blood Count 4.03 MIL/MM3 Hemoglobin 9.9 GM/DL Hematocrit 30.0 % Mean Corpuscular Volume 74.6 FL Mean Corpuscular Hemoglobin 24.6 PG Mean Corpuscular Hemoglobin 33.0 % Concent Red Cell Distribution Width 19.5 % Platelet Count 290 TH/MM3 Mean Platelet Volume 7.8 FL Neutrophils (%) (Auto) 73.2 % Lymphocytes (%) (Auto) 15.9 % Monocytes (%) (Auto) 8.7 % Eosinophils (%) (Auto) 1.8 % Basophils (%) (Auto) 0.4 % Neutrophils # (Auto) 6.9 TH/MM3 Lymphocytes # (Auto) 1.5 TH/MM3 Monocytes # (Auto) 0.8 TH/MM3 Eosinophils # (Auto) 0.2 TH/MM3 Basophils # (Auto) 0.0 TH/MM3 CBC Comment AUTO DIFF Differential Comment AUTO DIFF CONFIRMED Laboratory Tests Test 12/13/16 04:49 Sodium Level 141 MEQ/L Potassium Level 3.5 MEQ/L Chloride Level 108 MEQ/L Carbon Dioxide Level 25.0 MEQ/L Anion Gap 8 MEQ/L Blood Urea Nitrogen 7 MG/DL Creatinine 0.52 MG/DL Estimat Glomerular Filtration 133 ML/MIN Rate Random Glucose 100 MG/DL Calcium Level 8.4 MG/DL Microbiology Date/Time Procedure Status Source Growth 12/11/16 23:35 Aerobic Blood Culture - Preliminary Resulted Blood Peripheral NO GROWTH IN 1 DAY 12/11/16 23:35 Anaerobic Blood Culture - Preliminary Resulted Blood Peripheral NO GROWTH IN 1 DAY 12/11/16 23:50 Aerobic Blood Culture - Preliminary Resulted Blood Peripheral NO GROWTH IN 1 DAY 12/11/16 23:50 Anaerobic Blood Culture - Preliminary Resulted Blood Peripheral NO GROWTH IN 1 DAY Imaging Last Impressions CT Angiography 12/12/16 0335 Signed Impressions: Service Date/Time: Monday, December 12, 2016 04:18 - CONCLUSION: 1. Negative for pulmonary embolus. 2. 4 cm dense consolidation posterior segment right upper lobe most characteristic of pneumonia with small parapneumonic right pleural effusion. Jai Jones MD Chest X-Ray 12/11/16 [id number] Signed Impressions: Service Date/Time: Sunday, December 11, 2016 23:29 - CONCLUSION: 1. Focal area of consolidation or mass in the right upper lobe. Further evaluation with chest CT recommended. Jai Jones MD Physical Exam GENERAL: This is a thin female, awake and alert, not in respiratory distress SKIN: Cool and dry. No generalized rash or ecchymosis. Has tattoos. HEENT: [place] conjunctiva. No scleral icterus. No injection or drainage. Moist oral mucosa. NECK: Trachea midline. No JVD or lymphadenopathy. Supple, nontender, no meningeal signs. CARDIOVASCULAR: Regular rate and rhythm without murmurs, gallops, or rubs. RESPIRATORY: Coarse BS bilaterally. Breath sounds equal bilaterally. No wheezes , rales, or rhonchi. There is a large scar on R lateral trunk from previous grafting GASTROINTESTINAL: Abdomen soft, flat, non-tender, nondistended. Bowel sounds present and normoactive. No guarding. MUSCULOSKELETAL: Extremities without clubbing, cyanosis, or edema. No joint tenderness, effusion, or edema noted. No calf tenderness. Negative Homans sign bilaterally. NEUROLOGICAL: Non-focal. PSYCH: Appropriate affect, calm and cooperative LINE: PIV with no evidence of infection Assessment & Plan Remarks IMPRESSION Pneumonia, RUL, ?with mass Known IVDU Hep B and Hep C RECOMMENDATION Continue IV Vanco Continue Zosyn For bronch today Monitor progress Will determine course of Abx once work-up completed D/W Dr Krueger yesterday I will check on patient again on Saturday Radha Chen MD Dec 14, 2016 10:39
--- NOTE | 2016-12-14 13:16 | HHI.PR ---
Subjective Remarks Follow up for IVDU, right upper lobe dense consolidation. Ms. Watson complains of persistent pain. No fever or chills. She also reports being anxious. Objective Vitals Vital Signs Date Time Temp Pulse Resp B/P Pulse Ox O2 Delivery O2 Flow Rate FiO2 12/14/16 12:00 97.3 97 16 125/82 100 12/14/16 08:00 97.1 66 16 114/73 97 12/14/16 04:00 98.0 71 16 118/77 99 12/14/16 00:14 88 12/14/16 00:00 98.4 92 16 111/74 100 12/13/16 20:00 98.2 96 16 111/70 99 12/13/16 16:20 98.2 82 16 133/89 97 I/O 12/13/16 12/13/16 12/13/16 12/14/16 12/14/16 12/14/16 07:00 15:00 23:00 07:00 15:00 23:00 Intake Total 174 ml 200 ml 360 ml Output Total 300 ml Balance 174 ml -100 ml 360 ml Intake Oral 200 ml 0 ml Oral Supplement 120 ml IV Total 54 ml 360 ml Output Urine Total 300 ml # Voids 5 2 # Bowel Movements 0 0 Result Diagram: 12/13/16 0449 12/13/16 [address] Angiography 12/12/16 0335 Signed Impressions: Service Date/Time: Monday, December 12, 2016 04:18 - CONCLUSION: 1. Negative for pulmonary embolus. 2. 4 cm dense consolidation posterior segment right upper lobe most characteristic of pneumonia with small parapneumonic right pleural effusion. Jai Jones MD Chest X-Ray 12/11/16 8611 Signed Impressions: Service Date/Time: Sunday, December 11, 2016 23:29 - CONCLUSION: 1. Focal area of consolidation or mass in the right upper lobe. Further evaluation with chest CT recommended. Jai Jones MD Objective Remarks GENERAL: Alert, oriented 3, NAD. SKIN: Warm and dry. HEAD: Normocephalic. EYES: No scleral icterus. No injection or drainage. NECK: Supple, trachea midline. No JVD or lymphadenopathy. CARDIOVASCULAR: Regular rate and rhythm without murmurs, gallops, or rubs. Chest wall tenderness on the upper right chest wall on palpation. RESPIRATORY: Breath sounds equal bilaterally. No accessory muscle use. GASTROINTESTINAL: Abdomen soft, non-tender, nondistended. MUSCULOSKELETAL: No cyanosis, or edema. BACK: Nontender without obvious deformity. No CVA tenderness. Procedures None A/P Problem List: (1) Sepsis ICD Code: A41.9 Status: Resolved (2) Pneumonia ICD Code: J18.9 Status: Acute (3) Pleuritic chest pain ICD Code: R07.81 Status: Acute (4) IVDU (intravenous drug user) ICD Code: F19.90 Status: Chronic Assessment and Plan Ms. Watson is a 36 year old female with a history of Hep C, IVDU who presented to the ED with pleuritic chest pain. CT PE study shows 4 cm dense consolidation. - Sepsis - on admission WBC > 12, Resp rate > 20, Pneumonia - Right sided pneumonia - possibly abscess - Pleuritic chest pain - On Zosyn and Vancomycin. ID is following. - Continue Percocet 7.5/325 every 4 hours when necessary. - Continue naproxen when necessary. - Blood cultures negative so far - Consulted pulmonary, patient probably needs a bronchoscopy or CT-guided aspiration. Discussed with Dr. Gastelum. - IVDU - Hep C - Counselled patient. - Possible referral to [facility] after discharge - Anxiety - start clonazepam 1 mg every 8 hours when necessary. Full code. Lovenox. Problem Qualifiers (1) Sepsis: Qualified Code: A41.9 - Sepsis, due to unspecified organism (2) Pneumonia: Qualified Code: J18.1 - Pneumonia of right upper lobe due to infectious organism Ernesto rKueger DO Dec 14, 2016 1:16 pm
[2016-12-14] MEDS: clonazePAM 1 MG TAB PO PRN ×2 (15:11→23:37)
[2016-12-14] MEDS ORDERED: PHARMACY ORDERED LAB XX ONE (15:45)
[2016-12-14] MEDS: NAPROXEN 375 MG TAB PO PRN (18:01)
--- NOTE | 2016-12-14 19:02 | HHI.PR ---
Subjective Remarks 36 YOWF with IVDA, rUL density C/O back pain no fever Objective Vital Signs Vital Signs Date Time Temp Pulse Resp B/P Pulse Ox O2 Delivery O2 Flow Rate FiO2 12/14/16 16:00 97.0 93 16 120/78 100 12/14/16 12:00 97.3 97 16 125/82 100 12/14/16 08:00 97.1 66 16 114/73 97 12/14/16 04:00 98.0 71 16 118/77 99 12/14/16 00:14 88 12/14/16 00:00 98.4 92 16 111/74 100 12/13/16 20:00 98.2 96 16 111/70 99 I/O 12/13/16 12/13/16 12/13/16 12/14/16 12/14/16 12/14/16 07:00 15:00 23:00 07:00 15:00 23:00 Intake Total 174 ml 200 ml 360 ml 480 ml Output Total 300 ml Balance 174 ml -100 ml 360 ml 480 ml Intake Oral 200 ml 0 ml 480 ml Oral Supplement 120 ml IV Total 54 ml 360 ml Output Urine Total 300 ml # Voids 5 2 4 # Bowel Movements 0 0 2 Result Diagram: 12/13/16 0449 12/13/16 0449 Objective Remarks GENERAL: MBMN WF,NAD SKIN: Warm and dry. HEAD: Normocephalic. EYES: No scleral icterus. No injection or drainage. NECK: Supple, trachea midline. No JVD or lymphadenopathy. CARDIOVASCULAR: Regular rate and rhythm without murmurs, gallops, or rubs. RESPIRATORY: Breath sounds equal bilaterally. No accessory muscle use. GASTROINTESTINAL: Abdomen soft, non-tender, nondistended. MUSCULOSKELETAL: No cyanosis, or edema. BACK: Nontender without obvious deformity. No CVA tenderness. A/P Assessment and Plan RUL mass/ infilterate IVDA Nicotine use H/O Necrotising Fascitis PLAN: Cont Abx Aerosol nebs Smoking cessation Bronch re -scheduled for Saturday 4PM Mango Gastelum MD Dec 14, 2016 19:02
[2016-12-14] MEDS: ENOXAPARIN SODIUM 40 MG/0.4 ML SYRINGE SQ SCH (19:14)
[2016-12-15] VITALS: BP 118/85; PULSE 102; RESP 17; TEMP 96.3; O2SAT 100
[2016-12-15] MEDS: PIPERACIL-TAZO 3.375 GM PREMIX 50 ML IV SCH ×4 (01:38→18:03)
[2016-12-15] MEDS: oxyCODONE/ACETAMINOPHEN 7.5 MG/325 MG TAB PO PRN ×4 (03:51→20:18)
[2016-12-15 04:00] VITALS: BP 108/79; PULSE 99; RESP 16; TEMP 96.6; O2SAT 99
[2016-12-15 08:00] VITALS: BP 116/80; PULSE 82; RESP 20; TEMP 96.4; O2SAT 100
[2016-12-15] MEDS: SODIUM CHLORIDE 0.9% FLUSH 5 ML FLUSH FLUSH SCH ×2 (10:21→20:18)
[2016-12-15] MEDS: VANCOMYCIN 1,000 MG/NS 250 ML IV SCH ×4 (11:01→16:35)
--- NOTE | 2016-12-15 11:08 | HHI.PR ---
Subjective Remarks Follow up for IVDU, right upper lobe dense consolidation. Ms. Watson is doing well. No fever, chills. Still complains of upper right chest wall pain radiating to her right neck and upper right back. Pain is well controlled. Objective Vitals Vital Signs Date Time Temp Pulse Resp B/P Pulse Ox O2 Delivery O2 Flow Rate FiO2 12/15/16 08:00 96.4 82 20 116/80 100 12/15/16 04:00 96.6 99 16 108/79 99 12/15/16 00:00 96.3 102 17 118/85 100 12/14/16 20:00 98.2 92 16 110/81 100 12/14/16 16:00 97.0 93 16 120/78 100 12/14/16 12:00 97.3 97 16 125/82 100 I/O 12/14/16 12/14/16 12/14/16 12/15/16 12/15/16 12/15/16 07:00 15:00 23:00 07:00 15:00 23:00 Intake Total 360 ml 480 ml 720 ml 561 ml 360 ml Balance 360 ml 480 ml 720 ml 561 ml 360 ml Intake Oral 0 ml 480 ml 720 ml 240 ml 360 ml IV Total 360 ml 321 ml # Voids 2 4 6 2 # Bowel Movements 0 2 1 Result Diagram: 12/13/16 0449 12/13/16 [address] Angiography 12/12/16 0335 Signed Impressions: Service Date/Time: Monday, December 12, 2016 04:18 - CONCLUSION: 1. Negative for pulmonary embolus. 2. 4 cm dense consolidation posterior segment right upper lobe most characteristic of pneumonia with small parapneumonic right pleural effusion. Jai Jones MD Chest X-Ray 12/11/16 7645 Signed Impressions: Service Date/Time: Sunday, December 11, 2016 23:29 - CONCLUSION: 1. Focal area of consolidation or mass in the right upper lobe. Further evaluation with chest CT recommended. Jai Jones MD Objective Remarks GENERAL: Alert, oriented 3, NAD. SKIN: Warm and dry. HEAD: Normocephalic. EYES: No scleral icterus. No injection or drainage. NECK: Supple, trachea midline. No JVD or lymphadenopathy. CARDIOVASCULAR: Regular rate and rhythm without murmurs, gallops, or rubs. Chest wall tenderness on the upper right chest wall on palpation. RESPIRATORY: Breath sounds equal bilaterally. No accessory muscle use. GASTROINTESTINAL: Abdomen soft, non-tender, nondistended. MUSCULOSKELETAL: No cyanosis, or edema. BACK: Nontender without obvious deformity. No CVA tenderness. Procedures None A/P Problem List: (1) Sepsis ICD Code: A41.9 Status: Resolved (2) Pneumonia ICD Code: J18.9 Status: Acute (3) Pleuritic chest pain ICD Code: R07.81 Status: Acute (4) IVDU (intravenous drug user) ICD Code: F19.90 Status: Chronic Assessment and Plan Ms. Watson is a 36 year old female with a history of Hep C, IVDU who presented to the ED with pleuritic chest pain. CT PE study shows 4 cm dense consolidation. - Sepsis - on admission WBC > 12, Resp rate > 20, Pneumonia - Right sided pneumonia - possibly abscess - Pleuritic chest pain - On Zosyn 3.375g Q6hrs and Vancomycin 1000mg Q8hrs, Pharmacy to dose Vancomycin. ID is following. - Continue Percocet 7.5/325 every 4 hours PRN. - Continue naproxen PRN. - Blood cultures negative so far - Consulted pulmonary, Discussed with Dr. Gastelum on 12/14/2016. Likely bronchoscopy on Saturday12/17/2016. - IVDU - Hep C - Counselled patient. - Possible referral to [facility] after discharge - Anxiety - Continue clonazepam 1 mg every 8 hours PRN. Full code. Lovenox. Problem Qualifiers (1) Sepsis: Qualified Code: A41.9 - Sepsis, due to unspecified organism (2) Pneumonia: Qualified Code: J18.1 - Pneumonia of right upper lobe due to infectious organism Ernesto Krueger DO Dec 15, 2016 11:08 am
[2016-12-15 12:00] VITALS: BP 94/67; PULSE 88; RESP 18; TEMP 96.8; O2SAT 100
[2016-12-15 16:00] VITALS: BP 118/78; PULSE 102; RESP 20; TEMP 98.3; O2SAT 99
[2016-12-15] MEDS: NAPROXEN 375 MG TAB PO PRN (17:27)
--- NOTE | 2016-12-15 19:22 | EKG ---
Date Performed: 12/14/2016 Time Performed: 13:58:39 PTAGE: 36 years EKG: Sinus rhythm Since previous tracing, no significant change noted NORMAL ECG PREVIOUS TRACING : 12/11/2016 23.44 DOCTOR: Sawyer Evans Interpretating Date/Time 12/15/2016 19:20:55
[2016-12-15 20:00] VITALS: BP 117/77; PULSE 93; RESP 17; TEMP 97.1; O2SAT 100
[2016-12-15] MEDS: ENOXAPARIN SODIUM 40 MG/0.4 ML SYRINGE SQ SCH (20:18)
[2016-12-15] MEDS: clonazePAM 1 MG TAB PO PRN (20:21)
[2016-12-16] VITALS: BP 115/75; PULSE 87; RESP 16; TEMP 96.9; O2SAT 99
[2016-12-16] MEDS: VANCOMYCIN 1,000 MG/NS 250 ML IV SCH ×6 (00:01→16:41)
[2016-12-16] MEDS: oxyCODONE/ACETAMINOPHEN 7.5 MG/325 MG TAB PO PRN ×6 (00:02→21:22)
[2016-12-16] MEDS: PIPERACIL-TAZO 3.375 GM PREMIX 50 ML IV SCH ×4 (01:16→19:28)
[2016-12-16 04:00] VITALS: BP 110/74; PULSE 87; RESP 17; TEMP 96.8; O2SAT 98
[2016-12-16] MEDS: clonazePAM 1 MG TAB PO PRN ×2 (04:33→16:39)
[2016-12-16 08:00] VITALS: BP 97/62; PULSE 88; RESP 18; TEMP 97.6; O2SAT 99
[2016-12-16 08:12] LABS: AUTOMATED NEUTROPHIL # 3.8 TH/MM3 (1.8-7.7); BASOPHIL # 0.1 TH/MM3 (0-0.2); BASOPHIL % 1.3 % (0.0-2.0); EOSINOPHIL # 0.3 TH/MM3 (0-0.4); EOSINOPHIL % 5.3 % (0.0-4.0); HEMATOCRIT 28.9 % (35.0-46.0); LYMPH % 24.4 % (9.0-44.0); LYMPHOCYTE # 1.6 TH/MM3 (1.0-4.8); MEAN CORPUSCULAR HEMOGLOBIN 24.5 PG (27.0-34.0); MEAN CORPUSCULAR HGB CONC 32.7 % (32.0-36.0); PLATELET COUNT 354 TH/MM3 (150-450); RED BLOOD COUNT 3.86 MIL/MM3 (4.00-5.30); RED CELL DISTRIBUTION WIDTH 19.5 % (11.6-17.2); WHITE BLOOD COUNT 6.4 TH/MM3 (4.0-11.0)
[2016-12-16 08:15] LABS: HEMO FLAGS AUTO DIFF
--- NOTE | 2016-12-16 08:15 | HHI.PR ---
Subjective Remarks Follow-up pneumonia. Patient reporting ongoing back and chest pain, worse with deep breaths. Still with cough as well. Objective Vitals Vital Signs Date Time Temp Pulse Resp B/P Pulse Ox O2 Delivery O2 Flow Rate FiO2 12/16/16 04:00 96.8 87 17 110/74 98 12/16/16 00:00 96.9 87 16 115/75 99 12/15/16 20:00 97.1 93 17 117/77 100 12/15/16 16:00 98.3 102 20 118/78 99 12/15/16 12:00 96.8 88 18 94/67 100 I/O 12/15/16 12/15/16 12/15/16 12/16/16 12/16/16 12/16/16 07:00 15:00 23:00 07:00 15:00 23:00 Intake Total 561 ml 1200 ml 480 ml 240 ml Balance 561 ml 1200 ml 480 ml 240 ml Intake Oral 240 ml 1200 ml 480 ml 240 ml IV Total 321 ml # Voids 2 4 3 # Bowel Movements 2 Result Diagram: 12/13/16 0449 12/13/16 [address] Angiography 12/12/16 0335 Signed Impressions: Service Date/Time: Monday, December 12, 2016 04:18 - CONCLUSION: 1. Negative for pulmonary embolus. 2. 4 cm dense consolidation posterior segment right upper lobe most characteristic of pneumonia with small parapneumonic right pleural effusion. Jai Jones MD Chest X-Ray 12/11/16 5133 Signed Impressions: Service Date/Time: Sunday, December 11, 2016 23:29 - CONCLUSION: 1. Focal area of consolidation or mass in the right upper lobe. Further evaluation with chest CT recommended. Jai Jones MD Objective Remarks General: No acute distress. Heart: Regular rate and rhythm. No murmur. Lungs: Clear to auscultation bilaterally. No wheezes, rales, or rhonchi. Breathing is nonlabored. Abdomen: Soft, nontender, nondistended. Extremities: No lower extremity edema. Psych: Alert and oriented. Procedures None Urinary Catheter: No Vascular Central Line Catheter: No A/P Problem List: (1) Sepsis ICD Code: A41.9 Status: Resolved (2) Pneumonia ICD Code: J18.9 Status: Acute (3) Pleuritic chest pain ICD Code: R07.81 Status: Acute (4) IVDU (intravenous drug user) ICD Code: F19.90 Status: Chronic Assessment and Plan 1. Sepsis: Resolved. Patient presented with tachypnea, leukocytosis. Source is pneumonia. 2. Right upper lobe pneumonia: Continue vancomycin and Zosyn. Continue pain control for pleuritic chest pain. Blood cultures are negative so far. Appreciate pulmonology recommendations. Planning on bronchoscopy tomorrow. 3. History of IV drug abuse: Patient has been counseled. Would recommend drug rehabilitation following discharge. 4. History of hepatitis C: Follow-up as outpatient. 5. Anxiety: Continue clonazepam as needed. 6. DVT prophylaxis: Lovenox. 7. CODE STATUS: Full code. Problem Qualifiers (1) Sepsis: Qualified Code: A41.9 - Sepsis, due to unspecified organism (2) Pneumonia: Qualified Code: J18.1 - Pneumonia of right upper lobe due to infectious organism Kishor Felix MD Dec 16, 2016 08:15
[2016-12-16 08:49] LABS: PLATELET ESTIMATE SMEAR NORMAL (NORMAL); PLATELET MORPHOLOGY NORMAL (NORMAL); SCAN/DIFF AUTO DIFF CONFIRMED
[2016-12-16] MEDS: SODIUM CHLORIDE 0.9% FLUSH 5 ML FLUSH FLUSH SCH ×2 (09:05→21:22)
[2016-12-16 12:00] VITALS: BP 114/74; PULSE 92; RESP 18; TEMP 98.4; O2SAT 99
[2016-12-16 16:00] VITALS: BP 116/67; PULSE 102; RESP 18; TEMP 98.3; O2SAT 99
[2016-12-16] MEDS: NAPROXEN 375 MG TAB PO PRN (16:39)
[2016-12-16 20:00] VITALS: BP 125/82; PULSE 94; RESP 18; TEMP 98; O2SAT 99
[2016-12-16] MEDS: ENOXAPARIN SODIUM 40 MG/0.4 ML SYRINGE SQ SCH (21:22)
[2016-12-17] VITALS: BP 121/84; PULSE 83; RESP 17; TEMP 97.3; O2SAT 100
[2016-12-17] MEDS: oxyCODONE/ACETAMINOPHEN 7.5 MG/325 MG TAB PO PRN ×6 (00:49→23:57)
[2016-12-17] MEDS: NAPROXEN 375 MG TAB PO PRN ×2 (00:49→20:57)
[2016-12-17] MEDS: VANCOMYCIN 1,000 MG/NS 250 ML IV SCH ×8 (00:49→20:00)
[2016-12-17] MEDS: PIPERACIL-TAZO 3.375 GM PREMIX 50 ML IV SCH ×4 (00:49→18:25)
[2016-12-17] MEDS: clonazePAM 1 MG TAB PO PRN ×3 (03:39→20:57)
[2016-12-17 04:00] VITALS: BP 119/80; PULSE 78; RESP 17; TEMP 97; O2SAT 99
[2016-12-17 08:01] LABS: AUTOMATED NEUTROPHIL # 2.9 TH/MM3 (1.8-7.7); BASOPHIL # 0.1 TH/MM3 (0-0.2); BASOPHIL % 1.4 % (0.0-2.0); EOSINOPHIL # 0.3 TH/MM3 (0-0.4); HEMATOCRIT 30.4 % (35.0-46.0); LYMPH % 33.7 % (9.0-44.0); MEAN CELL VOLUME 75.9 FL (80.0-100.0); MEAN CORPUSCULAR HEMOGLOBIN 24.2 PG (27.0-34.0); MEAN CORPUSCULAR HGB CONC 31.9 % (32.0-36.0); MONO % 9.4 % (0.0-8.0); NEUT % 49.5 % (16.0-70.0); PLATELET COUNT 388 TH/MM3 (150-450); RED BLOOD COUNT 4.01 MIL/MM3 (4.00-5.30); RED CELL DISTRIBUTION WIDTH 19.3 % (11.6-17.2); WHITE BLOOD COUNT 5.8 TH/MM3 (4.0-11.0)
[2016-12-17 08:04] LABS: HEMO FLAGS AUTO DIFF
--- NOTE | 2016-12-17 08:05 | HHI.PR ---
Subjective Remarks Follow up pneumonia, pleuritic pain. The patient reports significant pain with breathing, coughing. Per nursing, she has been sleeping and resting comfortably , but started to complain of pain when I arrived. Objective Vitals Vital Signs Date Time Temp Pulse Resp B/P Pulse Ox O2 Delivery O2 Flow Rate FiO2 12/17/16 04:00 97.0 78 17 119/80 99 12/17/16 00:00 97.3 83 17 121/84 100 12/16/16 20:00 98.0 94 18 125/82 99 12/16/16 16:00 98.3 102 18 116/67 99 12/16/16 12:00 98.4 92 18 114/74 99 I/O 12/16/16 12/16/16 12/16/16 12/17/16 12/17/16 12/17/16 07:00 15:00 23:00 07:00 15:00 23:00 Intake Total 240 ml 1055 ml 480 ml Balance 240 ml 1055 ml 480 ml Intake Oral 240 ml 720 ml 480 ml IV Total 335 ml # Voids 3 1 4 2 # Bowel Movements 1 2 Result Diagram: 12/17/16 0530 12/16/16 [address] Angiography 12/12/16 0335 Signed Impressions: Service Date/Time: Monday, December 12, 2016 04:18 - CONCLUSION: 1. Negative for pulmonary embolus. 2. 4 cm dense consolidation posterior segment right upper lobe most characteristic of pneumonia with small parapneumonic right pleural effusion. Jai Jones MD Chest X-Ray 12/11/16 3272 Signed Impressions: Service Date/Time: Sunday, December 11, 2016 23:29 - CONCLUSION: 1. Focal area of consolidation or mass in the right upper lobe. Further evaluation with chest CT recommended. Jai Jones MD Objective Remarks Patient examined in presence of the nurse. General: No acute distress. Heart: Regular rate and rhythm. No murmur. Lungs: Clear to auscultation bilaterally. No wheezes, rales, or rhonchi. Breathing is nonlabored. Abdomen: Soft, nontender, nondistended. Extremities: No lower extremity edema. Psych: Alert and oriented. Procedures None Urinary Catheter: No Vascular Central Line Catheter: No A/P Problem List: (1) Sepsis ICD Code: A41.9 Status: Resolved (2) Pneumonia ICD Code: J18.9 Status: Acute (3) Pleuritic chest pain ICD Code: R07.81 Status: Acute (4) IVDU (intravenous drug user) ICD Code: F19.90 Status: Chronic Assessment and Plan 1. Sepsis: Resolved. Patient presented with tachypnea, leukocytosis. Source is pneumonia. 2. Right upper lobe pneumonia: Continue vancomycin and Zosyn. Continue pain control for pleuritic chest pain. Blood cultures are negative so far. Appreciate pulmonology recommendations. Planning on bronchoscopy today. 3. History of IV drug abuse: Patient has been counseled. Would recommend drug rehabilitation following discharge. Patient has been displaying drug seeking behavior. 4. History of hepatitis C: Follow-up as outpatient. 5. Anxiety: Continue clonazepam as needed. 6. DVT prophylaxis: Lovenox. 7. CODE STATUS: Full code. Shortly after I left her room, the patient left the floor "to go smoke". She was tracked down on the ground floor by the FIELD IDENT[employer]ICATION SPECIALIST and advised to return to her room or she would be discharged from the hospital per hospital policy. Security was called. The patient returned to her room. Problem Qualifiers (1) Sepsis: Qualified Code: A41.9 - Sepsis, due to unspecified organism (2) Pneumonia: Qualified Code: J18.1 - Pneumonia of right upper lobe due to infectious organism Kishor Felix MD Dec 17, 2016 08:05
[2016-12-17 08:11] LABS: BICARBONATE 26.2 MEQ/L (21.0-32.0); POTASSIUM 3.9 MEQ/L (3.5-5.1)
[2016-12-17 08:18] VITALS: BP 115/70; PULSE 78; RESP 16; TEMP 96.9; O2SAT 98
[2016-12-17 08:39] LABS: SCAN/DIFF AUTO DIFF CONFIRMED
[2016-12-17] MEDS: SODIUM CHLORIDE 0.9% FLUSH 5 ML FLUSH FLUSH SCH ×2 (09:48→20:00)
--- NOTE | 2016-12-17 10:17 | HHI.IDPN ---
Subjective Subjective Remarks Notes reviewed Temps ok Continues to have pain R chest, back and neck, stable, not worse Not coughing Bronch planned for this afternoon BC negative ESR 29 Antibiotics Vancomycin Zosyn Lines PIV Past Medical History Asthma Anxiety Depression Cervical cancer Cirrhosis PTSD Ovarian cyst Previous hepatitis serology, positive for hepatitis B and hepatitis C Patient states HIV testing in the past negative History of necrotizing fasciitis right trunk Past Surgical History section History of necrotizing fasciitis in her right trunk, had undergone multiple debridement and skin grafting Tubal ligation Fracture of the foot, apparently has screws and plates in place Adenoidectomy Allergies: Coded Allergies: Codeine (Verified Allergy, Intermediate, Hives, 12/11/16) Objective . Vital Signs Date Time Temp Pulse Resp B/P Pulse Ox O2 Delivery O2 Flow Rate FiO2 12/17/16 08:18 96.9 78 16 115/70 98 12/17/16 04:00 97.0 78 17 119/80 99 12/17/16 00:00 97.3 83 17 121/84 100 12/16/16 20:00 98.0 94 18 125/82 99 12/16/16 16:00 98.3 102 18 116/67 99 12/16/16 12:00 98.4 92 18 114/74 99 12/16/16 12/16/16 12/17/16 15:00 23:00 07:00 Intake Total 1055 ml 480 ml Balance 1055 ml 480 ml Intake Oral 720 ml 480 ml IV Total 335 ml # Voids 1 4 2 # Bowel Movements 1 2 . Laboratory Tests Test 12/16/16 12/17/16 07:05 05:30 White Blood Count 6.4 TH/MM3 5.8 TH/MM3 Red Blood Count 3.86 MIL/MM3 4.01 MIL/MM3 Hemoglobin 9.5 GM/DL 9.7 GM/DL Hematocrit 28.9 % 30.4 % Mean Corpuscular Volume 75.0 FL 75.9 FL Mean Corpuscular Hemoglobin 24.5 PG 24.2 PG Mean Corpuscular Hemoglobin 32.7 % 31.9 % Concent Red Cell Distribution Width 19.5 % 19.3 % Platelet Count 354 TH/MM3 388 TH/MM3 Mean Platelet Volume 7.9 FL 8.0 FL Neutrophils (%) (Auto) 59.0 % 49.5 % Lymphocytes (%) (Auto) 24.4 % 33.7 % Monocytes (%) (Auto) 10.0 % 9.4 % Eosinophils (%) (Auto) 5.3 % 6.0 % Basophils (%) (Auto) 1.3 % 1.4 % Neutrophils # (Auto) 3.8 TH/MM3 2.9 TH/MM3 Lymphocytes # (Auto) 1.6 TH/MM3 2.0 TH/MM3 Monocytes # (Auto) 0.6 TH/MM3 0.5 TH/MM3 Eosinophils # (Auto) 0.3 TH/MM3 0.3 TH/MM3 Basophils # (Auto) 0.1 TH/MM3 0.1 TH/MM3 CBC Comment AUTO DIFF AUTO DIFF Differential Comment AUTO DIFF AUTO DIFF CONFIRMED CONFIRMED Platelet Estimate NORMAL Platelet Morphology Comment NORMAL Laboratory Tests Test 12/16/16 12/17/16 07:05 05:30 Creatinine 0.52 MG/DL 0.49 MG/DL Estimat Glomerular Filtration 133 ML/MIN 142 ML/MIN Rate Sodium Level 142 MEQ/L Potassium Level 3.9 MEQ/L Chloride Level 106 MEQ/L Carbon Dioxide Level 26.2 MEQ/L Anion Gap 10 MEQ/L Blood Urea Nitrogen 8 MG/DL Random Glucose 74 MG/DL Calcium Level 8.7 MG/DL Imaging Last Impressions CT Angiography 12/12/16 0335 Signed Impressions: Service Date/Time: Monday, December 12, 2016 04:18 - CONCLUSION: 1. Negative for pulmonary embolus. 2. 4 cm dense consolidation posterior segment right upper lobe most characteristic of pneumonia with small parapneumonic right pleural effusion. Jai Jones MD Chest X-Ray 12/11/16 [id number] Signed Impressions: Service Date/Time: Sunday, December 11, 2016 23:29 - CONCLUSION: 1. Focal area of consolidation or mass in the right upper lobe. Further evaluation with chest CT recommended. Jai Jones MD Physical Exam GENERAL: This is a thin female, awake and alert, not in respiratory distress SKIN: Cool and dry. No generalized rash. Has tattoos. HEENT: [place] conjunctiva. No scleral icterus. No injection or drainage. Moist oral mucosa. NECK: Supple, nontender, no meningeal signs. CARDIOVASCULAR: Regular rate and rhythm without murmurs, gallops, or rubs. RESPIRATORY: Coarse BS bilaterally. Breath sounds equal bilaterally. No wheezes , rales, or rhonchi. There is a large scar on R lateral trunk from previous grafting GASTROINTESTINAL: Abdomen soft, flat, non-tender, nondistended. Bowel sounds present and normoactive. No guarding. MUSCULOSKELETAL: Extremities without clubbing, cyanosis, or edema. No calf tenderness. NEUROLOGICAL: Non-focal. PSYCH: Appropriate affect, calm and cooperative LINE: PIV with no evidence of infection Assessment & Plan Remarks IMPRESSION Pneumonia, RUL, ?with mass Known IVDU Hep B and Hep C RECOMMENDATION Continue IV Vanco Continue Zosyn For bronch today Monitor progress Will determine course of Abx once work-up completed Radha Chen MD Dec 17, 2016 10:17
[2016-12-17 12:00] VITALS: BP 109/64; PULSE 83; RESP 16; TEMP 98.3; O2SAT 99
[2016-12-17] MEDS ORDERED: ONDANSETRON HCL 4 MG/2 ML VIAL IV PUSH ONE (12:00)
[2016-12-17] MEDS ORDERED: PROPOFOL 200 MG/20 ML AMP IV ONE (12:00)
[2016-12-17] MEDS ORDERED: SODIUM CHLORIDE 0.9% 20 ML VIAL ONE (16:16)
[2016-12-17] MEDS ORDERED: LIDOCAINE VISCOUS 2% SOLN 15 ML UDC ONE (16:16)
[2016-12-17] MEDS ORDERED: EPINEPHrine HCL (1:1000) 1 MG/ML VIAL ONE (16:17)
[2016-12-17 16:36] VITALS: BP 115/65; PULSE 84; RESP 16; TEMP 97.8; O2SAT 98
--- NOTE | 2016-12-17 16:41 | HHI.PR ---
Subjective Remarks 36 YOWF with IVDA, rUL density C/O back pain no fever Hungry, NPO for Bronch Objective Vital Signs Vital Signs Date Time Temp Pulse Resp B/P Pulse Ox O2 Delivery O2 Flow Rate FiO2 12/17/16 16:36 97.8 84 16 115/65 98 12/17/16 12:07 16 12/17/16 12:00 98.3 83 16 109/64 99 12/17/16 08:18 96.9 78 16 115/70 98 12/17/16 04:00 97.0 78 17 119/80 99 12/17/16 00:00 97.3 83 17 121/84 100 12/16/16 20:00 98.0 94 18 125/82 99 I/O 12/16/16 12/16/16 12/16/16 12/17/16 12/17/16 12/17/16 07:00 15:00 23:00 07:00 15:00 23:00 Intake Total 240 ml 1055 ml 480 ml Balance 240 ml 1055 ml 480 ml Intake Oral 240 ml 720 ml 480 ml IV Total 335 ml # Voids 3 1 4 2 # Bowel Movements 1 2 Result Diagram: 12/17/16 0530 12/17/16 0530 Objective Remarks GENERAL: MBMN WF,NAD SKIN: Warm and dry. HEAD: Normocephalic. EYES: No scleral icterus. No injection or drainage. NECK: Supple, trachea midline. No JVD or lymphadenopathy. CARDIOVASCULAR: Regular rate and rhythm without murmurs, gallops, or rubs. RESPIRATORY: Breath sounds equal bilaterally. No accessory muscle use. GASTROINTESTINAL: Abdomen soft, non-tender, nondistended. MUSCULOSKELETAL: No cyanosis, or edema. BACK: Nontender without obvious deformity. No CVA tenderness. A/P Assessment and Plan RUL mass/ infilterate IVDA Nicotine use H/O Necrotising Fascitis PLAN: Cont Abx Aerosol nebs Smoking cessation Bronch today DW Pt explained procedure and complications Agrees to proceed with bronch and Bx Mango Gastelum MD Dec 17, 2016 16:41
[2016-12-17] MEDS ORDERED: MIDAZOLAM HCL 2 MG/2 ML VIAL ONE (16:56)
[2016-12-17] MEDS ORDERED: FAMOTIDINE 20 MG/2 ML VIAL ONE (16:56)
[2016-12-17] MEDS ORDERED: DEXAMETHASONE SOD PHOS 4 MG/ML VIAL ONE (16:56)
[2016-12-17] MEDS ORDERED: DO NOT ADM ANY ANTICOAGULANT DRUGS XX PRN (17:48)
[2016-12-17] MEDS ORDERED: *morphine SULFATE 8 MG/ML PERIprocedure ONLY ONE ×2 (18:13→18:30)
--- NOTE | 2016-12-17 18:19 | RADRPT ---
EXAM DATE/TIME: 12/17/2016 17:49 [facility] COMPARISON: CT PULMONARY ANGIOGRAM, December 12, 2016, 4:18. CHEST SINGLE AP, December 11, 2016, 23:29. INDICATIONS : Post bronchoscopy. MEDICAL HISTORY : Chronic obstructive pulmonary disease. Hepatitis C. Asthma. SURGICAL HISTORY : Tubal ligation. section. ENCOUNTER: Initial ACUITY: 1 day PAIN SCORE: 6/10 LOCATION: Right chest FINDINGS: Dense consolidation in the posterior segment of the right upper lobe again noted, not significantly c hanged. Left lung remains clear. No pleural effusion seen. No pneumothorax. Heart size stable within normal limits. CONCLUSION: Persistent right upper lobe consolidation. No pneumothorax demonstrated. Doe Oneil MD on December 17, 2016 at 18:17 Board Certified Radiologist. This report was verified electronically.
[2016-12-17 20:00] VITALS: BP 106/59; PULSE 75; RESP 18; TEMP 98.2; O2SAT 97
[2016-12-17] MEDS: ENOXAPARIN SODIUM 40 MG/0.4 ML SYRINGE SQ SCH (20:00)
[2016-12-18] VITALS: BP 131/74; PULSE 100; RESP 18; TEMP 98.7; O2SAT 97
[2016-12-18] MEDS: PIPERACIL-TAZO 3.375 GM PREMIX 50 ML IV SCH ×2 (01:00→06:32)
[2016-12-18 04:00] VITALS: BP 127/69; PULSE 78; RESP 18; TEMP 98; O2SAT 98
[2016-12-18] MEDS: oxyCODONE/ACETAMINOPHEN 7.5 MG/325 MG TAB PO PRN (04:00)
[2016-12-18] MEDS: VANCOMYCIN 1,000 MG/NS 250 ML IV SCH ×2 (04:02)
--- NOTE | 2016-12-18 05:11 | MR ---
cc: MARLINE STACK MD DATE OF PROCEDURE 12/17/2016 PROCEDURE Bronchoscopy. PREOPERATIVE DIAGNOSIS Right lung mass. POSTOPERATIVE DIAGNOSIS No endobronchial lesions seen. PROCEDURE Informed consent was obtained from the patient. The procedure and the complications including complication of anesthesia, pneumothorax requiring chest tube, bleeding complication, injury to blood vessels, lungs, nerves, arrhythmia and hypoxia were explained to the patient and she consented to the procedure. The patient was brought to the operating room under general anesthesia. Endotracheal tube was placed by the anesthesiologist. Bronchoscopy was done through endotracheal tube. Main dick is sharp. Bronchoscope advanced to the left lung, the left upper, lingula and lower lobes were visualized. No endobronchial or mucosal lesion was seen. Then the bronchoscope was further advanced to the right lung. The right upper, middle and lower lobes were visualized. No endobronchial or mucosal lesion was seen. Right lower lobe washings, brushing and biopsy were done. She had a small amount of bleeding which was controlled with saline lavage. She tolerated the procedure well. Biopsy sent for pathology. Brushings sent for cytology. Washings sent for cytology, routine culture, AFB, fungal culture and Pneumocystis. Postprocedure chest x-ray ordered. MD BERENICE Nieto/SSB /5:46 PM /5:04 AM
[2016-12-18] MEDS: clonazePAM 1 MG TAB PO PRN (05:19)
[2016-12-18] MEDS: NAPROXEN 375 MG TAB PO PRN (05:19)
[2016-12-18] MEDS ORDERED: PHARMACY ORDERED LAB XX ONE (19:45)
== END 2016-12-18 07:50 | disposition left against medical advice (07) | DRG 853 ==
LOC: NEPE 20:19 → NEDA 12-12 03:38 → NEPFCDU 12-12 05:34 → HOCA 12-13 16:53 → N04B 12-17 16:49 → N04A 12-17 18:52
PROVIDERS: ADMIT Family Medicine; ATTEND Family Medicine
PROC: 0BBC8ZX Excision of Right Upper Lung Lobe, Via Natural or Artificial Opening Endoscopic, Diagnostic (ICD-10-PCS; principal; 2016-12-17 17:00)
DX: A41.9 Sepsis, unspecified organism (principal); J18.9 Pneumonia, unspecified organism; K74.69 Other cirrhosis of liver; J44.0 Chronic obstructive pulmonary disease with (acute) lower respiratory infection; F32.9 Major depressive disorder, single episode, unspecified; F14.10 Cocaine abuse, uncomplicated; F15.10 Other stimulant abuse, uncomplicated; F17.210 Nicotine dependence, cigarettes, uncomplicated; B19.20 Unspecified viral hepatitis C without hepatic coma; F43.10 Post-traumatic stress disorder, unspecified; F41.9 Anxiety disorder, unspecified
CPT/HCPCS: 71010; 71275; 76000; 76937; 80048; 80053; 80202; 80307; 80320; 81001; 82550; 82565; 83605; 83690; 83735; 83880; 84484; 84703; 85025; 85379; 85610; 85652; 85730; 86403; 87015; 87040; 87070; 87102; 87116; 87147; 87186; 87205; 87206; 88305; 93005; 96361; 96365; 96367; 96375; J0171; J0295; J1100; J1170; J1650; J1885; J2250; J2270; J2405; J2543; J3010; J3370; J7030; J7050; Q9967

== ENCOUNTER 2017-11-14 12:21 | Emergency (ER) | payer SELFPAY ==
[~2017-11-14] VITALS: Ht 157.5 cm; Wt 54.5 kg
[2017-11-14 12:23] VITALS: BP 173/108; PULSE 105; RESP 24; TEMP 98.6; O2SAT 95
[2017-11-14 13:07] VITALS: BP 139/76; PULSE 90; RESP 20; O2SAT 100
[2017-11-14] MEDS ORDERED: IBUPROFEN 800 MG TAB PO ONE (13:15)
[2017-11-14 13:45] LABS: AUTOMATED NEUTROPHIL # 5.1 TH/MM3 (1.8-7.7); BASOPHIL # 0.1 TH/MM3 (0-0.2); EOSINOPHIL # 0.2 TH/MM3 (0-0.4); EOSINOPHIL % 2.2 % (0.0-4.0); HEMATOCRIT 29.4 % (35.0-46.0); HEMOGLOBIN 9.2 GM/DL (11.6-15.3); LYMPH % 34.4 % (9.0-44.0); LYMPHOCYTE # 3.3 TH/MM3 (1.0-4.8); MEAN CELL VOLUME 71.1 FL (80.0-100.0); MEAN CORPUSCULAR HEMOGLOBIN 22.4 PG (27.0-34.0); MEAN CORPUSCULAR HGB CONC 31.5 % (32.0-36.0); MEAN PLATELET VOLUME 6.9 FL (7.0-11.0); MONO % 10.3 % (0.0-8.0); NEUT % 52.1 % (16.0-70.0); PLATELET COUNT 409 TH/MM3 (150-450); RED BLOOD COUNT 4.13 MIL/MM3 (4.00-5.30); RED CELL DISTRIBUTION WIDTH 19.6 % (11.6-17.2); WHITE BLOOD COUNT 9.7 TH/MM3 (4.0-11.0)
[2017-11-14 13:55] LABS: BILIRUBIN, URINE NEG (NEG); BLOOD, URINE NEG (NEG); GLUCOSE,URINE NEG (NEG); HYALINE CAST, URINE 4 /lpf (RARE); KETONE, URINE NEG (NEG); MUCUS URINE FEW /lpf (OCC); NITRITE,URINE NEG (NEG); SQUAMOUS EPITHELIAL CELL URINE 2 /hpf (0-5); URINE COLOR YELLOW (YELLW/STRAW); URINE LEUKOCYTE ESTERASE MOD (NEG); WHITE BLOOD CELL CLUMPS RARE
[2017-11-14 14:01] LABS: BICARBONATE 25.2 MEQ/L (21.0-32.0); CALCIUM 8.7 MG/DL (8.5-10.1); CREATININE 0.63 MG/DL (0.50-1.00)
--- NOTE | 2017-11-14 14:05 | PD ---
HPI Chief Complaint: Medical Clearance Time Seen by Provider: 12:46 Travel History International Travel<30 days: No Contact w/Intl Traveler<30days: No Traveled to known affect area: No History of Present Illness HPI 37-year-old female presents to the emergency department for complaints. Her first complaint is that she had 5 witnessed seizures on Saturday night, biting her tongue and breaking her teeth. She reports jaw pain, throat pain, and her ears hurt. Reports nausea and dizziness. Denies fevers, vomiting. Nasal congestion. Denies chest pain, shortness of breath. Denies confusion, disorientation, change in mentation, slurred speech. Seizures were witnessed by her roommate. She was taking Dilantin for the last 3 weeks well she was incarcerated and ran out of her medications on Saturday. She does reports smoking amphetamines 4 days ago. She has history of IV drug use but states she has not used for over a year. She is also complaining of dysuria and urinary frequency. Urinary frequency has been for about 3 weeks. Dysuria 2 days. Reports vaginal discharge that "cleared up." Abdominal pain, pelvic pain. Last menstrual period weeks ago. Has not taken any medications or tried any treatments to alleviate her symptoms. No known aggravating or relieving factors. Symptoms are moderate in severity. No known allergies. No primary care provider. History of anxiety, seizures, cirrhosis, hepatitis B and C, hypertension. Has no other medical complaints. No other modifying factors or associated signs and symptoms. PFSH Past Medical History Asthma: Yes Autoimmune Disease: Yes (rheumatoid arthritis) Anxiety: Yes Depression: Yes Cancer: Yes (HX ovarian) Cardiovascular Problems: No Chemotherapy: Yes Cirrhosis: Yes COPD: Yes Cerebrovascular Accident: No Diabetes: No Diminished Hearing: No Endocrine: No Gastrointestinal Disorders: Yes (pain and diarrhea for two years) Genitourinary: Yes (uti) Headaches: Yes Hepatitis: Yes (HEP C) Immune Disorder: No Implanted Vascular Access Dvce: No Musculoskeletal: Yes Neurologic: Yes Psychiatric: Yes Reproductive: No Respiratory: No Immunizations Current: Yes Myocardial Infarction: No Radiation Therapy: No Renal Failure: Yes Seizures: Yes Tetanus Vaccination: < 5 Years ?: Not : 3 Para: 3 Ovarian Cysts: Yes Tubal Ligation: Yes Past Surgical History Abdominal Surgery: Yes (exploratory surgery X3) Cardiac Surgery: No Section: Yes (X1) Endocrine Surgery: Yes (adnoids and polyps at age 9) Genitourinary Surgery: No Gynecologic Surgery: Yes (OVARY REMOVAL) Neurologic Surgery: No Thoracic Surgery: No Other Surgery: Yes Social History Alcohol Use: No Tobacco Use: Yes (/2-3 PPD) Substance Use: Yes (methamphetamine, dilaudid) Allergies-Medications (Allergen,Severity, Reaction): Coded Allergies: codeine (Unverified Allergy, Intermediate, Hives, 11/14/17) *MDRO Multi-Drug Resistant Organism (Verified Adverse Reaction, Unknown, ) MRSA ([facility] wash)-12/17/16 Reported Meds & Prescriptions Reported Meds & Active Scripts Active No Active Prescriptions or Reported Medications Review of Systems Except as stated in HPI: all other systems reviewed are Neg Physical Exam Narrative GENERAL: Thin, female patient, in no acute distress; patient has erratic and anxious SKIN: Warm and dry. HEAD: Atraumatic. Normocephalic. No facial droop noted. Tongue midline. EYES: Pupils equal and round at 3 mm with brisk reaction. No scleral icterus. No injection or drainage. PERRLA. EOMI. ENT: Mucosa pink and moist. Oropharynx with erythema; without edema or exudates. No uvular edema. No uvular, palatal, or tonsillar deviation. Airway patent. Nasal turbinates appear normal without nasal blood, purulent drainage or septal hematoma. MOUTH: Mucous membranes moist, no lesions, and gums appear normal. Tongue with multiple canker sores noted. Poor dentition throughout with multiple broken teeth to front upper and left; multile dental caries and decay noted. NECK: Trachea midline. No lymphadenopathy. CARDIOVASCULAR: Regular rate and rhythm. No murmur appreciated. RESPIRATORY: No accessory muscle use. Clear to auscultation. Breath sounds equal bilaterally. GASTROINTESTINAL: Abdomen soft, non-tender, nondistended. Hepatic and splenic margins not palpable. Bowel sounds are active 4 quadrants. MUSCULOSKELETAL: No obvious deformities. No clubbing. No cyanosis. No edema. BACK: No CVA tenderness. NEUROLOGICAL: Awake and alert. Oriented 3. No obvious cranial nerve deficits. Motor grossly within normal limits. Normal speech. No ataxia. No mid -line drift. No upper or lower extremity drift. Moves all extremities. 5/5 strength to all extremities. PSYCHIATRIC: Appropriate mood and affect; insight and judgment normal. Data Data Last Documented VS Vital Signs Date Time Temp Pulse Resp B/P (MAP) Pulse Ox O2 Delivery O2 Flow Rate FiO2 11/14/17 13:07 90 20 139/76 (97) 100 Room Air 11/14/17 12:23 98.6 Orders Orders Group A Rapid Strep Screen (11/14/17 13:04) Ibuprofen (Motrin) (11/14/17 13:15) Gc And Chlamydia Pcr (11/14/17 13:04) Urinalysis - C+S If Indicated (11/14/17 13:04) Ct Brain W/O Iv Contrast(Rout) (11/14/17 ) Complete Blood Count With Diff (11/14/17 13:04) Basic Metabolic Panel (Bmp) (11/14/17 13:04) Urine Culture (11/14/17 13:20) Strep Culture (Group A) (11/14/17 13:20) Labs Laboratory Tests Test 11/14/17 13:20 White Blood Count 9.7 TH/MM3 Red Blood Count 4.13 MIL/MM3 Hemoglobin 9.2 GM/DL Hematocrit 29.4 % Mean Corpuscular Volume 71.1 FL Mean Corpuscular Hemoglobin 22.4 PG Mean Corpuscular Hemoglobin Concent 31.5 % Red Cell Distribution Width 19.6 % Platelet Count 409 TH/MM3 Mean Platelet Volume 6.9 FL Neutrophils (%) (Auto) 52.1 % Lymphocytes (%) (Auto) 34.4 % Monocytes (%) (Auto) 10.3 % Eosinophils (%) (Auto) 2.2 % Basophils (%) (Auto) 1.0 % Neutrophils # (Auto) 5.1 TH/MM3 Lymphocytes # (Auto) 3.3 TH/MM3 Monocytes # (Auto) 1.0 TH/MM3 Eosinophils # (Auto) 0.2 TH/MM3 Basophils # (Auto) 0.1 TH/MM3 CBC Comment DIFF FINAL Differential Comment Urine Color YELLOW Urine Turbidity CLEAR Urine pH 6.0 Urine Specific [place] 1.026 Urine Protein 30 mg/dL Urine Glucose (UA) NEG mg/dL Urine Ketones NEG mg/dL Urine Occult Blood NEG Urine Nitrite NEG Urine Bilirubin NEG Urine Urobilinogen LESS THAN 2.0 MG/DL Urine Leukocyte Esterase MOD Urine RBC 1 /hpf Urine WBC 10 /hpf Urine WBC Clumps RARE Urine Squamous Epithelial Cells 2 /hpf Urine Hyaline Casts 4 /lpf Urine Mucus FEW /lpf Microscopic Urinalysis Comment CULTURE INDICATED Blood Urea Nitrogen 16 MG/DL Creatinine 0.63 MG/DL Random Glucose 127 MG/DL Calcium Level 8.7 MG/DL Sodium Level 138 MEQ/L Potassium Level 4.1 MEQ/L Chloride Level 107 MEQ/L Carbon Dioxide Level 25.2 MEQ/L Anion Gap 6 MEQ/L Estimat Glomerular Filtration Rate 106 ML/MIN MDM Medical Decision Making Medical Screen Exam Complete: Yes Emergency Medical Condition: Yes Medical Record Reviewed: Yes Differential Diagnosis Medication refill, seizure disorder, canker sores, amphetamine abuse, UTI Narrative Course 37-year-old female, seizure disorder, with multiple complaints. CT head, CBC, BMP, urinalysis, chlamydia, gonorrhea ordered. The patient says she doesn't want to take Dilantin. I discussed the patient with Dr. Tilley and she agrees with plan of care. 1510: Hemoglobin 9.2 and is consistent with past levels. CBC consistent with anemia and is consistent with past CBC's. BMP unremarkable. Urinalysis was signs of infection. Reflex 2 urine culture. Acute findings. Patient provided a copy of her CT head report. I will provide the patient a prescription for Dilantin although she states she is not going to take it. Instructed patient to follow up with neurology and primary care. Provided information for [facility] for follow-up. Instructed patient to follow up with primary care provider. Patient verbalizes understanding and agreement with treatment plan. Patient is medically cleared and stable for discharge. Discussed reasons to return to the emergency department. Patient agrees with treatment plan. The patients vital signs are stable and the patient is stable for outpatient follow- up and treatment. Patient discharged home, stable and in no acute distress. Diagnosis Primary Impression: UTI (urinary tract infection) Qualified Codes: N39.0 - Urinary tract infection, site not specified Additional Impressions: Seizure disorder Medication refill Referrals: [facility] Neurologist Primary Care Physician Patient Instructions: General Instructions, Medication Refill, ED, Recurrent Seizures in Adults (ED), Urinary Tract Infection in Women (ED) Additional Instructions: Take antibiotics as prescribed and complete full course Drink plenty of fluids Maintain good personal hygiene Follow-up with primary care provider Return to the emergency department immediately with worsening of symptoms Med/Other Pt SpecificInfo: Prescription(s) given Scripts Phenytoin Extended (Dilantin) 100 Mg Cap 100 MG PO TID for Control Seizures, #90 CAP 0 Refills Prov: Amy Rodriguez 11/14/17 Cephalexin (Keflex) 500 Mg Cap 500 MG PO Q12H for Infection for 7 Days, #14 CAP 0 Refills Prov: Amy Rodriguez 11/14/17 Disposition: 01 DISCHARGE HOME Condition: Stable Amy Rodriguez Nov 14, 2017 14:05
--- NOTE | 2017-11-14 14:11 | RADRPT ---
EXAM DATE/TIME: 11/14/2017 14:02 [facility] COMPARISON: CT BRAIN W/O CONTRAST, March 25, 2014, 16:56. INDICATIONS : Seizure 5 days ago RADIATION DOSE: 34.92 CTDIvol (mGy) MEDICAL HISTORY : Seizures. Chronic obstructive pulmonary disease. Hepatitis C. SURGICAL HISTORY : Tubal ligation. ENCOUNTER: Initial ACUITY: 4 - 6 days PAIN SCALE: 0/10 LOCATION: cranial TECHNIQUE: Multiple contiguous axial images were obtained of the head. Using automated exposure control and adj ustment of the mA and/or kV according to patient size, radiation dose was kept as low as reasonably a chievable to obtain optimal diagnostic quality images. DICOM format image data is available electro nically for review and comparison. FINDINGS: CEREBRUM: The ventricles are normal for age. No evidence of midline shift, mass lesion, hemorrhage or acute in farction. No extra-axial fluid collections are seen. POSTERIOR FOSSA: The cerebellum and brainstem are intact. The 4th ventricle is midline. The cerebellopontine angle i s unremarkable. EXTRACRANIAL: The visualized portion of the orbits is intact. SKULL: The calvaria is intact. No evidence of skull fracture. CONCLUSION: Negative noncontrast CT Rex Fowler MD on November 14, 2017 at 14:08 Board Certified Radiologist. This report was verified electronically.
[2017-11-14] MEDS ORDERED: DILA100C PO (15:15)
[2017-11-14] MEDS ORDERED: CEPH-460 PO (15:15)
[2017-11-14 15:55] VITALS: BP 130/70
== END 2017-11-14 15:56 | disposition home or self-care (01) ==
LOC: NEPD 12:21
DX: G40.909 Epilepsy, unspecified, not intractable, without status epilepticus (principal); N39.0 Urinary tract infection, site not specified; R11.0 Nausea; R42 Dizziness and giddiness; R68.84 Jaw pain; R07.0 Pain in throat; R09.81 Nasal congestion; M06.9 Rheumatoid arthritis, unspecified; Z76.0 Encounter for issue of repeat prescription
CPT/HCPCS: 70450; 80048; 81001; 85025; 87081; 87086; 87491; 87591; 87880

== ENCOUNTER 2018-01-18 13:25 | Emergency (ER) | payer OTHER ==
[~2018-01-18] VITALS: Ht 157.5 cm; Wt 55.0 kg
[~2018-01-18 13:25] MED LIST: CEPH-460 PO; DILA100C PO
[2018-01-18 13:42] VITALS: BP 123/77; PULSE 108; RESP 16; TEMP 98.6; O2SAT 99
== END 2018-01-18 15:30 | disposition left against medical advice (07) ==
LOC: NETRI 13:25
DX: J02.0 Streptococcal pharyngitis (principal); Z53.21 Procedure and treatment not carried out due to patient leaving prior to being seen by health care provider
CPT/HCPCS: 87880; 99281